=== PATIENT | male | born 1955 | race Caucasian/White ===

== ENCOUNTER → 2024-11-13 | Outpatient (CLI) | payer SELFPAY ==
--- NOTE | 2024-11-13 08:00 | PROSBIL_PTH ---
PATIENT: ARNIE WOOD LOC: [facility] U#:[id number] AGE/SX: 69/M ROOM: RE11/13/[address]: Dr. Ever Beltrán MD : 1955 BED: DIS: 11/13/2024 SPEC #: [id number] RECD: 11/13/24 15:00 STATUS: MYRA REShawna #: [id number] DOROTHY: 11/13/24 08:[address]: Ever Beltrán DEPT: SURGICAL PATHOLOGY RECD BY: Woody Bradley ENTERED: 11/14/24 10:44 SP TYPE: PROST BX QAMAR DR: RICHAR ANDERSON, JENNA Tissues: A - PROSTATE RIGHT B - PROSTATE RIGHT C - PROSTATE RIGHT D - PROSTATE LEFT E - PROSTATE LEFT F - PROSTATE LEFT Procedures: PROSTATE BX HEADER OPERATION: Prostate biopsy PRE-OP DIAGNOSIS: Elevated PSA TISSUE SUBMITTED: A - Right apex, B - Right mid, C - Right base, D - Left apex, E - Left mid, F - Left base MICROSCOPIC DIAGNOSIS A. 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 B. 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 C. 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 D. Left prostate, apex, core biopsy: - Adenocarcinoma Charissa grade 4+5=9, involving one of one core and 70% of the tissue - see note. Note: One core of tissue is recovered after processing. E. Left prostate, mid, core biopsy: - Adenocarcinoma [place] grade 4+5=9, involving one of one core and 75% of the tissue - see note. Note: One core of tissue is recovered after processing. F. Left prostate, base, core biopsy: - Adenocarcinoma [place] grade 4+5=9, involving one of one core and 90% of the tissue - see note. Note: One core of tissue is recovered after processing. MICROSCOPIC DESCRIPTION Slides are reviewed. GROSS DESCRIPTION A - Received is one container designated prostate, right apex. The specimen consists of two elongated fragments of light liu-white soft tissue each measuring 0.9 cm in length and 0.1 cm in diameter. The specimen is totally submitted in one cassette. B - Received is one container designated prostate, right mid. The specimen consists of two elongated fragments of light liu-white soft tissue each measuring 0.6 cm in length and 0.1 cm in diameter. The specimen is totally submitted in one cassette. C - Received is one container designated prostate, right base. The specimen consists of two elongated fragments of light liu-white soft tissue each measuring 1.3 cm in length and 0.1 cm in diameter. The specimen is totally submitted in one cassette. D - Received is one container designated prostate, left apex. The specimen consists of two elongated fragments of light liu-white soft tissue each measuring 1.9 cm in length and 0.1 cm in diameter. The specimen is totally submitted in one cassette. E - Received is one container designated prostate, left mid. The specimen consists of two elongated fragments of light liu-white soft tissue each measuring 1.4 cm in length and 0.1 cm in diameter. The specimen is totally submitted in one cassette. F - Received is one container designated prostate, left base. The specimen consists of two elongated fragments of light liu-white soft tissue each measuring 1.4 cm in length and 0.1 cm in diameter. The specimen is totally submitted in one cassette. [place] 11/14/2024 CPT: 97271 x6
--- NOTE | 2024-11-13 08:00 | PROSBIL_PTH ---
PATIENT: ARNIE WOOD LOC: [facility] U#:[id number] AGE/SX: 69/M ROOM: RE11/13/[address]: Dr. Ever Beltrán MD : 1955 BED: DIS: 11/13/2024 SPEC #: [id number] RECD: 11/13/24 15:00 STATUS: MYRA REShawna #: [id number] DOROTHY: 11/13/24 08:[address]: Ever Beltrán DEPT: SURGICAL PATHOLOGY RECD BY: Woody Bradley ENTERED: 11/14/24 10:44 SP TYPE: PROST BX QAMAR DR: RICHAR ANDERSON, JENNA Tissues: A - PROSTATE RIGHT B - PROSTATE RIGHT C - PROSTATE RIGHT D - PROSTATE LEFT E - PROSTATE LEFT F - PROSTATE LEFT Procedures: PROSTATE BX HEADER OPERATION: Prostate biopsy PRE-OP DIAGNOSIS: Elevated PSA TISSUE SUBMITTED: A - Right apex, B - Right mid, C - Right base, D - Left apex, E - Left mid, F - Left base MICROSCOPIC DIAGNOSIS A. 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 B. 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 C. 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 D. Left prostate, apex, core biopsy: - Adenocarcinoma Char[place] grade 4+5=9, involving one of one core and 70% of the tissue - see note. Note: One core of tissue is recovered after processing. E. Left prostate, mid, core biopsy: - Adenocarcinoma [place] grade 4+5=9, involving one of one core and 75% of the tissue - see note. Note: One core of tissue is recovered after processing. F. Left prostate, base, core biopsy: - Adenocarcinoma [place] grade 4+5=9, involving one of one core and 90% of the tissue - see note. Note: One core of tissue is recovered after processing. MICROSCOPIC DESCRIPTION Slides are reviewed. GROSS DESCRIPTION A - Received is one container designated prostate, right apex. The specimen consists of two elongated fragments of light liu-white soft tissue each measuring 0.9 cm in length and 0.1 cm in diameter. The specimen is totally submitted in one cassette. B - Received is one container designated prostate, right mid. The specimen consists of two elongated fragments of light liu-white soft tissue each measuring 0.6 cm in length and 0.1 cm in diameter. The specimen is totally submitted in one cassette. C - Received is one container designated prostate, right base. The specimen consists of two elongated fragments of light liu-white soft tissue each measuring 1.3 cm in length and 0.1 cm in diameter. The specimen is totally submitted in one cassette. D - Received is one container designated prostate, left apex. The specimen consists of two elongated fragments of light liu-white soft tissue each measuring 1.9 cm in length and 0.1 cm in diameter. The specimen is totally submitted in one cassette. E - Received is one container designated prostate, left mid. The specimen consists of two elongated fragments of light liu-white soft tissue each measuring 1.4 cm in length and 0.1 cm in diameter. The specimen is totally submitted in one cassette. F - Received is one container designated prostate, left base. The specimen consists of two elongated fragments of light liu-white soft tissue each measuring 1.4 cm in length and 0.1 cm in diameter. The specimen is totally submitted in one cassette. [place] 11/14/2024 CPT: 82710 x6
== END | disposition home or self-care (01) ==
LOC: LABSPEC 15:11
PROVIDERS: PCP Nurse Practitioner Family; Referring Provider Urology; Visit Provider Urology
DX: R97.20 Elevated prostate specific antigen [PSA] (principal)
CPT/HCPCS: 88305; G0416

== ENCOUNTER → 2024-11-29 | Outpatient (CLI) | payer OTHER, SELFPAY ==
[2024-11-29 18:07] LABS: Anion Gap 10 (5-15); BUN 23 mg/dL (4-19); BUN/Creat Ratio 27.3 RATIO (10-20); Calcium,Total 8.6 mg/dL (7.6-11.0); Carbon Dioxide 22.5 mmol/L (21.0-32.0); Chloride 109 mmol/L (98-108); Glucose 93 mg/dL (70-99); Potassium 4.5 mmol/L (3.3-5.1)
== END | disposition home or self-care (01) ==
LOC: LAB 16:40
PROVIDERS: PCP Nurse Practitioner Family; Referring Provider Urology; Visit Provider Urology
DX: Z01.812 Encounter for preprocedural laboratory examination (principal)
CPT/HCPCS: 36415; 80048

== ENCOUNTER 2025-01-02 09:24 | Observation (INO) | payer SELFPAY, OTHER ==
[2025-01-02] VITALS (12 sets, daily range): BP systolic 115–130; BP diastolic 55–67; PULSE 47–66; RESP 12–18; TEMP 36–36.5; O2SAT 91–100; BMI 28.8
--- OUTSIDE RECORDS SUMMARY | 2025-01-02 06:39 | XMS RPT_ITS | CCD ---
Author Organization [facility] Care Team Providers Care Disease Intervention Specialist Name Role Phone STANISLAW GROSS DO Attending Unavailable STANISLAW GROSS DO Primary Care Unavailable STANISLAW GROSS DO Primary Care Physician [phone] JUSTIN CRULLER MAKER MACHINE-C, RICHAR Primary Care Provider Lorena FIERRO, Dr. Ever Powell Attending Provider Lorena FIERRO, Dr. Ever Powell Referring Provider 1( [phone] Maria G CARRILLO Attending Unavailable Maria G CARRILLO Primary Care Unavailable Maria G CARRILLO Admitting Unavailable STANISLAW GROSS IV Consulting Unavailable PROVIDER, UNKNOWN Consulting Unavailable ILIANA MUIR Attending STANISLAW Galvan DO Primary Care Unavailable ILIANA MUIR Attending STANISLAW Galvan DO Primary Care Unavailable MUNA ALMAGUER MD Attending Unavailable STANISLAW GROSS DO Primary Care Unavailable Ever Carrillo Referring Unavailable RICHAR ANDERSON Primary Care Unavailable LorenaEver zuniga Attending Unavailable LorenaEver zuniga Referring Unavailable HalStanislaw norwood Primary Care Unavailable LorenaEver zuniga Attending Unavailable LorenaEver Referring Unavailable Lorena, Ever Powell Attending Unavailable JUSTINRICHAR Primary Care Unavailable LorenaEver Referring Unavailable JUSTIN, RICHAR Primary Care Unavailable LorenaEver Attending Unavailable Medications Current Medications Medication Drug Class(es) Dates Sig (Normalized) Sig (Original) esomeprazole 40 mg delayed release oral capsule (3 sources) Proton Pump Inhibitor Start: 09-04-2024 End: 03-03-2025 esomeprazole 40 mg oral delayed release capsule Dose : 40 mg = 1 cap(s), Oral, qDay, # 90 cap(s), 1 Refill(s), Pharmacy: [facility], 173, cm, 09/04/24 10:17:00 EDT, Height, kg, 09/04/24 10:17:00 EDT, Dosing Weight Start Date: 09/04/24 Stop Date: 03/03/25 Status: Ordered Medication Dispense Status: Completed Quantity: 90.0 Unit: cap(s) Total Allowed Fills: 2 Fills Dispensed: 0 Start: 04-26-2023 End: 10-23-2023 esomeprazole 40 mg oral melissa yed release capsule Dose : 40 mg = 1 cap(s), Oral, qDay, # 90 cap(s), 1 Refill(s), [facility]: [id number], 173, cm, 04/26/23 10:06:00 EST, Height, kg, 04/26/23 10:06:00 EST, Dosing Weight Start Date: 04/26/23 Stop Date: 10/23/23 Status: Ordered famotidine 40 mg oral tablet (1 source) Histamine-2 Receptor Antagonist Start: 04-26-2023 famotidine 40 mg ora l tablet Dose : 40 mg = 1 tab(s), Oral, BID, first dose in am with esopmeprazole, second before dinner in evening, # 60 tab(s), 0 Refill(s), [facility]: [facility] #[id number], 173, cm, 04/26/23 10:06:00 EST, Height, kg, 04/26/23 10:06:00 EST, Dosing Weight Start Date: 04/26/23 Status: Ordered LORazepam 1 mg oral tablet (2 sources) Benzodiazepine Start: 09-04-2024 End: 10-04-2024 LORazepam 1 mg oral tablet Dose : 1 mg = 1 tab(s), Oral, BID, X 30 day(s), # 60 tab(s), 0 Refill(s), 10/04/24 10:41:00 AM EDT, Pharmacy: [facility], Anxiety, 173, cm, 09/04/24 10:17:00 EDT, Height, 88.9, kg, 09/04/24 10:17:00 EDT, Dosing Weight Start Date: 09/04/24 Stop Date: 10/04/24 Status: Ordered Quantity: 60.0 Unit: tab(s) Repeat number: 1 Indications: Anxiety disorder, unspecified; Start: 04-26-2023 End: 05-26-2023 LORazepam 1 mg oral tablet D ose : 1 mg = 1 tab(s), Oral, q12h, take 1 tablet by mouth twice a day if needed for anxiety, X 30 day(s), # 60 tab(s), 0 Refill(s), 05/26/23 10:40:00 AM EST, [facility]: [facility] #[id number], Panic attack, 173, cm, 04/26/23 10:06:00 EST, Height, 88.5, kg, 04/26/23 10:06:00 EST, Dosing Weight Start Date: 04/26/23 Stop Date: 05/26/23 Status: Ordered sulfamethoxazole 800 mg / trimethoprim 160 mg oral tablet (1 source) Dihydrofolate Reductase Inhibitor Antibacterial, Sulfonamide Antimicrobial Start: 09-14-2024 End: 09-28-2024 take 1 tablet by mouth twice daily Bactrim DS 800 mg-160 mg oral tablet Dose = 1 tab(s), Oral, BID, X 14 day(s), # 28 tab(s), 0 Refill(s), Pharmacy: [facility], 173, cm, 09/04/24 10:17:00 EDT, Height, 88.9, kg, 09/04/24 10:17:00 EDT, Dosing Weight Start Date: 09/14/24 Stop Date: 09/28/24 Status: Ordered Quantity: 28.0 Unit: tab(s) Repeat number: 1 Indications: Acute prostatitis; tamsulosin hydrochloride 0.4 mg oral capsule (2 sources) alpha-Adrenergic Yue Start: 09-14-2024 End: 03-13-2025 Flomax 0.4 mg oral capsule Dose : 0.4 mg = 1 cap(s), Oral, qDay, # 90 cap(s), 1 Refill(s), Pharmacy: [facility], Acute prostatitis Incomplete emptying of bladder, 173, cm, 09/04/24 10:17:00 EDT, Height, kg, 09/04/24 10:17:00 EDT, Dosing Weight Start Date: 09/14/24 Stop Date: 03/13/25 Status: Ordered Medication Dispense Status: Completed Quantity: 90.0 Unit: cap(s) Total Allowed Fills: 2 Fills Dispensed: 0 Indications: Retention of urine, unspecified; Acute prostatitis; 24 hr venlafaxine 75 mg extended release oral capsule (2 sources) Serotonin and Norepinephrine Reuptake Inhibitor Start: 09-04-2024 venlafaxine 75 mg oral capsule, extended release Dose : 75 mg = 1 cap(s), Oral, qDay, # 30 cap(s), 0 Refill(s), Pharmacy: [facility], 173, cm, 09/04/24 10:17:00 EDT, Height, kg, 09/04/24 10:17:00 EDT, Dosing Weight Start Date: 09/04/24 Status: Ordered Medication Dispense Status: Completed Quantity: 30.0 Unit: cap(s) Total Allowed Fills: 1 Fills Dispensed: 0 warfarin sodium 5 mg oral tablet (3 sources) Vitamin K Antagonist Start: 09-04-2024 warfarin 5 mg oral tablet Dose : 5 mg = 1 tab(s), Oral, qDay, # 90 tab(s), 1 Refill(s), Pharmacy: [facility], 173, cm, 09/04/24 10:17:00 EDT, Height, kg, 09/04/24 10:17:00 EDT, Dosing Weight Start Date: 09/04/24 Status: Ordered Medication Dispense Status: Completed Quantity: 90.0 Unit: tab(s) Total Allowed Fills: 2 Fills Dispensed: 0 Start: 04-26-2023 warfarin 5 mg oral tablet Dose : 5 mg = 1 tab(s), Oral, qDay, # 90 tab(s), 1 Refill(s), Pharmacy: [facility] #[id number], 173, cm, 04/26/23 10:06:00 EST, Height, kg, 04/26/23 10:06:00 EST, Dosing Weight Start Date: 04/26/23 Status: Ordered Problems Problem Classification Problem Date Documented Da te Episodic/Chronic Abdominal hernia (3 sources) Hiatal hernia 08-25-2021 Episodic Anxiety disorders (6 sources) Anxiety; Translations: [Panic attack] 11-21-2018 Chronic Cancer of prostate (1 source) Malignant tumor of prostate 12-17-2024 Chronic Coagulation and hemorrhagic disorders (6 sources) Factor V Leiden mutation; Translations: [Hypercoagulability state] 04-09-2020 Chronic Deficiency and other anemia (3 sources) Normocytic anemia 04-07-2020 Episodic Deficiency and other anemia (1 source) Anemia; Translations: [Anemia, unspecified] Onset: 12-19-2024 Episodic Deficiency and other anemia (1 source) Anemia, unspecified; Translations: [Anemia, unspecified] Onset: 12-19-2024 Episodic Diverticulosis and diverticulitis (3 sources) Diverticulosis of colon 10-26-2021 Chronic Gastroduodenal ulcer (except hemorrhage) (3 sources) Peptic ulcer 10-26-2021 Chronic Gastroduodenal ulcer (except hemorrhage) (5 sources) Personal history of peptic ulcer disease; Translations: [H/O: peptic ulcer] Onset: 05-17-2023 Episodic Genitourinary symptoms and ill-defined conditions (14 sources) Blood in urine; Translations: [Hematuria, unspecified] Onset: 09-14-2024 Episodic Hepatitis (3 sources) Hepatitis 11-09-2022 Malaise and fatigue (3 sources) Fatigue 06-01-2019 Episodic Mood disorders (3 sources) Major depression in remission 11-09-2022 Chronic Osteoarthritis (3 sources) Osteoarthritis 08-01-2020 Chronic Other gastrointestinal disorders (3 sources) Irritable bowel syndrome 08-25-2021 Chronic Other gastrointestinal disorders (2 sources) Constipation 08-30-2023 Episodic Other hereditary and degenerative nervous system conditions (3 sources) Restless legs 06-01-2019 Chronic Other lower respiratory disease (3 sources) Snoring 06-01-2019 Episodic Other nutritional; endocrine; and metabolic disorders (1 source) Overweight 11-09-2022 Episodic Other screening for suspected conditions (not mental disorders or infectious disease) (1 source) Elevated prostate specific antigen [PSA]; Translations: [Elevated prostate specific antigen [PSA]] Onset: 12-11-2024 Episodic Residual codes; unclassified (3 sources) Insomnia 08-10-2019 Episodic Residual codes; unclassified (3 sources) Screening due 04-27-2022 Episodic Screening and history of mental health and substance abuse codes (2 sources) Ex-tobacco user 08-30-2023 Episodic Unclassified (3 sources) Anticoagulant effect 04-26-2023 Unclassified (3 sources) Medication refused 11-09-2022 Unclassified (6 sources) Patient encounter status 11-09-2022 Unclassified (2 sources) Drug therapy finding 08-30-2023 Results Test Name Value Interpretation Reference Range Facility .Auto Diffon 12-19-2024 Basophil, Absolute 0.0 10 3/mcL Normal 0.0-0.3 [facility] Comment on above: Performed By: #### A PTT, CBC, MDW, GFR, PRO, ANEU, CMP, ABSGEL, ABOGEL, ADIFF, MG #### [address] [address] Basophils/100 WBC (Bld) 0.5 % Normal 0.0-2.5 [facility] Comment on above: Performed By: #### A PTT, CBC, MDW, GFR, PRO, ANEU, CMP, ABSGEL, ABOGEL, ADIFF, MG #### [address] [address] Eosinophil, Absolute 0.0 10 3/mcL Normal 0.0-0.7 [facility] Comment on above: Performed By: #### A PTT, CBC, MDW, GFR, PRO, ANEU, CMP, ABSGEL, ABOGEL, ADIFF, MG #### [address] [address] Eosinophils/100 WBC (Bld) 0.7 % Normal 0.0-6.0 [facility] Comment on above: Performed By: #### A PTT, CBC, MDW, GFR, PRO, ANEU, CMP, ABSGEL, ABOGEL, ADIFF, MG #### [address] [address] Lymphocyte, Absolute 0.7 10 3/mcL Low 0.9-4.3 [facility] Comment on above: Performed By: #### A PTT, CBC, MDW, GFR, PRO, ANEU, CMP, ABSGEL, ABOGEL, ADIFF, MG #### [address] [address] Lymphocytes/100 WBC (Bld) 14.8 % Low 20.0-40.0 [facility] Comment on above: Performed By: #### A PTT, CBC, MDW, GFR, PRO, ANEU, CMP, ABSGEL, ABOGEL, ADIFF, MG #### [address] [address] Monocyte, Absolute 0.5 10 3/mcL Normal 0.1-1.4 [facility] Comment on above: Performed By: #### A PTT, CBC, MDW, GFR, PRO, ANEU, CMP, ABSGEL, ABOGEL, ADIFF, MG #### [address] [address] Monocytes/100 WBC (Bld) 10.4 % Normal 2.0-13.0 [facility] Comment on above: Performed By: #### A PTT, CBC, MDW, GFR, PRO, ANEU, CMP, ABSGEL, ABOGEL, ADIFF, MG #### [address] [address] Neutrophils/100 WBC (Bld) 73.6 % Normal 50.0-75.0 [facility] Comment on above: Performed By: #### A PTT, CBC, MDW, GFR, PRO, ANEU, CMP, ABSGEL, ABOGEL, ADIFF, MG #### [address] [address] .GFRon 12-19-2024 Estimated Glomerular Filtration Rate 93 ml/min/1.73sqm Normal [facility] Comment on above: Result Comment: Stages of Chronic Kidney Disease (CKD) Stage Description eGFR(ml/min/1.73 sq.m.) CKD 1 Normal kidney function or >=90 normal kindney function with possible kidney damage (ex. Proteinuria) CKD 2 Kidney damage with mild loss 60-89 of kidney function CKD 3a Mild to moderate loss of kidney 45-59 function CKD 3b Moderate to severe loss of 30-44 of kindey function CKD 4 Severe loss of kidney function 15-29 CKD 5 Kidney failure <15 Note: (go live 2024) the eGFR calculation was updated to the 2020 CKD-EPI creatinine equation without a race factor to calculate the eGFR results. Performed By: #### A PTT, CBC, MDW, GFR, PRO, ANEU, CMP, ABSGEL, ABOGEL, ADIFF, MG ####[facility] [place], [place] [address] .MDWon 12-19-2024 Monocyte Distribution Width 15.87 Normal 0.00-20.00 [facility] Comment on above: Result Comment: For ED adult patients suspected of sepsis, MDW<=20.0 does not rule out sepsis or risk of sepsis Performed By: #### A PTT, CBC, MDW, GFR, PRO, ANEU, CMP, ABSGEL, ABOGEL, ADIFF, MG #### [address] [address] .NEUABSon 12-19-2024 Neutrophil, Absolute 3.6 10 3/mcL Normal 2.3-8.1 [facility] Comment on above: Performed By: #### A PTT, CBC, MDW, GFR, PRO, ANEU, CMP, ABSGEL, ABOGEL, ADIFF, MG #### [address] [address] ABO/Rh (Gel)on 12-19-2024 ABO/Rh Interp Positive Invalid Interpretation Code [facility] Comment on above: Performed By: #### A PTT, CBC, MDW, GFR, PRO, ANEU, CMP, ABSGEL, ABOGEL, ADIFF, MG ####[place] [id number] [place], [place] [address] ABS (Gel)on 12-19-2024 ABSC Interp (Gel) Negative Normal [facility] Comment on above: Performed By: #### A PTT, CBC, MDW, GFR, PRO, ANEU, CMP, ABSGEL, ABOGEL, ADIFF, MG ####[id number] [place], [place] [address] APTTon 12-19-2024 aPTT Coag (Bld) [Time] 38.8 s High 25.0-35.0 [facility] Comment on above: Result Comment: For Heparin anticoagulation therapy, the recommended therapeutic range is: 45.4-75.9 seconds. Patients on heparin therapy may have an extreme result. Performed By: #### A PTT, CBC, MDW, GFR, PRO, ANEU, CMP, ABSGEL, ABOGEL, ADIFF, MG ####[address] [address] CBCon 12-19-2024 Erythrocyte distribution width (RBC) [Ratio] 14.7 % Normal 11.5-15.5 [facility] Comment on above: Performed By: #### A PTT, CBC, MDW, GFR, PRO, ANEU, CMP, ABSGEL, ABOGEL, ADIFF, MG #### [place] [address] Hematocrit (Bld) [Volume fraction] 35.2 % Low 40.0-52.0 [facility] Comment on above: Performed By: #### A PTT, CBC, MDW, GFR, PRO, ANEU, CMP, ABSGEL, ABOGEL, ADIFF, MG #### [place] [address] Hgb 11.8 G/dL Low 13.0-17.5 [facility] Comment on above: Performed By: #### A PTT, CBC, MDW, GFR, PRO, ANEU, CMP, ABSGEL, ABOGEL, ADIFF, MG #### [place] [address] MCH (RBC) [Entitic mass] 29.3 pg Normal 27.0-33.0 [facility] Comment on above: Performed By: #### A PTT, CBC, MDW, GFR, PRO, ANEU, CMP, ABSGEL, ABOGEL, ADIFF, MG #### [place] [address] MCHC 33.6 G/dL Normal 32.0-36.0 [facility] Comment on above: Performed By: #### A PTT, CBC, MDW, GFR, PRO, ANEU, CMP, ABSGEL, ABOGEL, ADIFF, MG #### [place] [id number] MCV (RBC) [Entitic vol] 87.2 fL Normal 81.0-100.0 [facility] Comment on above: Performed By: #### A PTT, CBC, MDW, GFR, PRO, ANEU, CMP, ABSGEL, ABOGEL, ADIFF, MG #### [address] [address] Platelet 254 10 3/mcL Normal 150-450 [facility] Comment on above: Performed By: #### A PTT, CBC, MDW, GFR, PRO, ANEU, CMP, ABSGEL, ABOGEL, ADIFF, MG #### [address] [address] Platelet mean volume (Bld) [Entitic vol] 6.4 fL Normal 6.4-10.5 [facility] Comment on above: Performed By: #### A PTT, CBC, MDW, GFR, PRO, ANEU, CMP, ABSGEL, ABOGEL, ADIFF, MG #### [address] [address] RBC 4.03 10 6/mcL Low 4.50-6.00 [facility] Comment on above: Performed By: #### A PTT, CBC, MDW, GFR, PRO, ANEU, CMP, ABSGEL, ABOGEL, ADIFF, MG #### [address] [address] WBC 4.8 10 3/mcL Normal 4.5-10.8 [facility] Comment on above: Performed By: #### A PTT, CBC, MDW, GFR, PRO, ANEU, CMP, ABSGEL, ABOGEL, ADIFF, MG #### [address] [address] CMPon 12-19-2024 Albumin Level 2.9 G/dL Low 3.4-4.8 [facility] Comment on above: Performed By: #### A PTT, CBC, MDW, GFR, PRO, ANEU, CMP, ABSGEL, ABOGEL, ADIFF, MG ####[address] [address] Albumin/Globulin [Mass ratio] 0.9 {ratio} Low 1.1-2.5 [facility] Comment on above: Performed By: #### A PTT, CBC, MDW, GFR, PRO, ANEU, CMP, ABSGEL, ABOGEL, ADIFF, MG ####[address] [address] ALP [Catalytic activity/Vol] 105 U/L Normal 40-135 [facility] Comment on above: Performed By: #### A PTT, CBC, MDW, GFR, PRO, ANEU, CMP, ABSGEL, ABOGEL, ADIFF, MG ####[place] [id number] ALT [Catalytic activity/Vol] 17 U/L Normal 16-63 [facility] Comment on above: Performed By: #### A PTT, CBC, MDW, GFR, PRO, ANEU, CMP, ABSGEL, ABOGEL, ADIFF, MG ####[place] [address] AST [Catalytic activity/Vol] 19 U/L Normal 10-40 [facility] Comment on above: Performed By: #### A PTT, CBC, MDW, GFR, PRO, ANEU, CMP, ABSGEL, ABOGEL, ADIFF, MG ####[address] [address] Bili Total 0.7 mg/dL Normal 0.2-1.0 [facility] Comment on above: Result Comment: Use of this assay is not recommended for patients undergoing treatment with eltrombopag due to the potential for falsely elevated results. Performed By: #### A PTT, CBC, MDW, GFR, PRO, ANEU, CMP, ABSGEL, ABOGEL, ADIFF, MG ####[id number] [place], [place] [address] BUN/Creatinine Ratio 19 ratio Normal 7-27 [facility] Comment on above: Performed By: #### A PTT, CBC, MDW, GFR, PRO, ANEU, CMP, ABSGEL, ABOGEL, ADIFF, MG ####[address] [address] Calcium [Mass/Vol] 8.5 mg/dL Normal 8.4-10.2 [facility] Comment on above: Performed By: #### A PTT, CBC, MDW, GFR, PRO, ANEU, CMP, ABSGEL, ABOGEL, ADIFF, MG ####[address] [address] Chloride [Moles/Vol] 105 mmol/L Normal 98-107 [facility] Comment on above: Performed By: #### A PTT, CBC, MDW, GFR, PRO, ANEU, CMP, ABSGEL, ABOGEL, ADIFF, MG ####[place] [address] CO2 [Moles/Vol] 26 mmol/L Normal 23-31 [facility] Comment on above: Performed By: #### A PTT, CBC, MDW, GFR, PRO, ANEU, CMP, ABSGEL, ABOGEL, ADIFF, MG ####[place] [address] Creatinine [Mass/Vol] 0.85 mg/dL Normal 0.67-1.17 [facility] Comment on above: Performed By: #### A PTT, CBC, MDW, GFR, PRO, ANEU, CMP, ABSGEL, ABOGEL, ADIFF, MG ####[place] [address] Electrolyte Balance 8.0 mEq/L Normal 4.0-15.0 [facility] Comment on above: Performed By: #### A PTT, CBC, MDW, GFR, PRO, ANEU, CMP, ABSGEL, ABOGEL, ADIFF, MG ####[place] [address] Globulin 3.3 G/dL Normal 2.7-4.4 [facility] Comment on above: Performed By: #### A PTT, CBC, MDW, GFR, PRO, ANEU, CMP, ABSGEL, ABOGEL, ADIFF, MG ####[place] [address] Glucose [Mass/Vol] 108 mg/dL Normal 83-110 [facility] Comment on above: Performed By: #### A PTT, CBC, MDW, GFR, PRO, ANEU, CMP, ABSGEL, ABOGEL, ADIFF, MG ####[address] [place], [place] [address] Potassium [Moles/Vol] 4.2 mmol/L Normal 3.5-5.1 [facility] Comment on above: Performed By: #### A PTT, CBC, MDW, GFR, PRO, ANEU, CMP, ABSGEL, ABOGEL, ADIFF, MG ####[facility] [place], [place] [address] Sodium [Moles/Vol] 139 mmol/L Normal 136-145 [facility] Comment on above: Performed By: #### A PTT, CBC, MDW, GFR, PRO, ANEU, CMP, ABSGEL, ABOGEL, ADIFF, MG ####[facility] [place], [place] [address] Total Protein 6.2 G/dL Low 6.4-8.2 [facility] Comment on above: Performed By: #### A PTT, CBC, MDW, GFR, PRO, ANEU, CMP, ABSGEL, ABOGEL, ADIFF, MG ####[facility] [place], [place] [address] Urea nitrogen [Mass/Vol] 16 mg/dL Normal 7-18 [facility] Comment on above: Performed By: #### A PTT, CBC, MDW, GFR, PRO, ANEU, CMP, ABSGEL, ABOGEL, ADIFF, MG ####[facility] [place], [place] [address] LABORATORYOrdered By: Castillo Day on 12-19-2024 ABO and Rh group Nom (Bld) Blood group A Rh(D) positive Invalid Interpretation Code AO BB Auto SS Blood group antibody screen Ql Negative ABSC (12/19/24 3:06 PM) Normal AO BB Auto SS LABORATORYOrdered By: Topple Track SYSTEM on 12-19-2024 Albumin BCP dye [Mass/Vol] 2.9 G/dL Low 3.4 - 4.8 G/dL AO ADM SS Albumin/Globulin [Mass ratio] 0.9 {ratio} Low 1.1 - 2.5 ratio AO ADM SS ALP [Catalytic activity/Vol] 105 U/L Normal 40 - 135 U/L AO ADM SS ALT With P-5'-P [Catalytic activity/Vol] 17 U/L Normal 16 - 63 U/L AO ADM SS aPTT Coag (PPP) [Time] 38.8 s High 25.0 - 35.0 seconds AO [facility] SS Comment on above: Interpretive Data: F or Heparin anticoagulation therapy, the recommended therapeutic range is: 45.4-75.9 seconds. Patients on heparin therapy may have an extreme result. AST With P-5'-P [Catalytic activity/Vol] 19 U/L Normal 10 - 40 U/L AO ADM SS Basophils (Bld) [#/Vol] 0.0 103/mcL Normal 0.0 - 0.3 10^3/mcL AO Workflow SS Basophils/100 WBC (Bld) 0.5 % Normal 0.0 - 2.5 % AO Workflow SS Bilirubin [Mass/Vol] 0.7 mg/dL Normal 0.2 - 1 .0 mg/dL AO ADM SS Comment on above: Interpretive Data: U se of this assay is not recommended for patients undergoing treatment with eltrombopag due to the potential for falsely elevated results. Calcium [Mass/Vol] 8.5 mg/dL Normal 8.4 - 10. 2 mg/dL AO ADM SS Chloride [Moles/Vol] 105 mmol/L Normal 98 - 10 7 mmol/L AO ADM SS CO2 [Moles/Vol] 26 mmol/L Normal 23 - 31 mmol/L AO ADM SS Creatinine [Mass/Vol] 0.85 mg/dL Normal 0.67 - 1.17 mg/dL AO ADM SS Electrolyte Balance 8.0 mEq/L Normal 4.0 - 15 .0 mEq/L AO ADM SS Eosinophil, Absolute 0.0 103/mcL Normal 0.0 - 0 .7 10^3/mcL AO Workflow SS Eosinophils/100 WBC (Bld) 0.7 % Normal 0.0 - 6.0 % AO Workflow SS Erythrocyte distribution width (RBC) [Ratio] 14.7 % Normal 11.5 - 15.5 % AO Workflow SS Estimated Glomerular Filtration Rate 93 ml/min/1.73sqm Invalid Interpretation Code AO Chemistry S Comment on above: Interpretive Data: Stages of Chronic Kidney Disease (CKD) Stage Description eGFR(ml/min/1.73 sq.m.) CKD 1 Normal kidney function or >=90 normal kindney function with possible kidney damage (ex. Proteinuria) CKD 2 Kidney damage with mild loss 60-89 of kidney function CKD 3a Mild to moderate loss of kidney 45-59 function CKD 3b Moderate to severe loss of 30-44 of kindey function CKD 4 Severe loss of kidney function 15-29 CKD 5 Kidney failure <15 Note: (go live 2024) the eGFR calculation was updated to the 2020 CKD-EPI creatinine equation without a race factor to calculate the eGFR results. Globulin 3.3 G/dL Normal 2.7 - 4.4 G/dL AO ADM SS Glucose [Mass/Vol] 108 mg/dL Normal 83 - 110 mg/dL AO ADM SS Hematocrit (Bld) [Volume fraction] 35.2 % Low 40.0 - 52.0 % AO Workflow SS Hemoglobin (Bld) [Mass/Vol] 11.8 G/dL Low 13.0 - 17.5 G/dL AO Workflow SS INR Coag (PPP) [Relative time] 2.3 {INR} Invalid Interpretation Code AO [facility] SS Comment on above: Interpretive Data: Maria C jalloh [employer] (CHEST, 1992, [id number]) recommended therapeutic range for oral anticoagulant therapy is: LOW RISK: Prophylaxis of venous thrombosis INR: 2.0-3.0 Treatment of pulmonary embolism 2.0-3.0 Prevention of systemic embolism 2.0-3.0 HIGH RISK: Mechanical prosthetic valves 2.5-3.5 Lymphocytes (Bld) [#/Vol] 0.7 103/mcL Low 0.9 - 4.3 10^3/mcL AO Workflow SS Lymphocytes/100 WBC (Bld) 14.8 % Low 20.0 - 40.0 % AO Workflow SS Magnesium [Mass/Vol] 2.1 mg/dL Normal 1.8 - 2 .4 mg/dL AO ADM SS MCH (RBC) [Entitic mass] 29.3 pg Normal 27.0 - 33.0 pg AO Workflow SS MCHC 33.6 G/dL Normal 32.0 - 36.0 G/dL AO Workflow SS MCV (RBC) [Entitic vol] 87.2 fL Normal 81.0 - 100.0 fL AO Workflow SS Monocyte distribution width Auto (Bld) [Entitic vol] 15.87 1 Normal 0.00 - 20.00 AO Workflow SS Comment on above: Result Comment: For ED adult patients suspected of sepsis, MDW<=20.0 does not rule out sepsis or risk of sepsis Monocytes (Bld) [#/Vol] 0.5 103/mcL Normal 0.1 - 1.4 10^3/mcL AO Workflow SS Monocytes/100 WBC (Bld) 10.4 % Normal 2.0 - 13.0 % AO Workflow SS Neutrophils (Bld) [#/Vol] 3.6 103/mcL Normal 2.3 - 8.1 10^3/mcL AO Workflow SS Neutrophils/100 WBC (Bld) 73.6 % Normal 50.0 - 75.0 % AO Workflow SS Platelet mean volume (Bld) [Entitic vol] 6.4 fL Normal 6.4 - 10.5 fL AO Workflow SS Platelets (Bld) [#/Vol] 254 103/mcL Normal 150 - 450 10^3/mcL AO Workflow SS Potassium [Moles/Vol] 4.2 mmol/L Normal 3.5 - 5.1 mmol/L AO ADM SS Protein [Mass/Vol] 6.2 G/dL Low 6.4 - 8.2 G/dL AO ADM SS PT Coag (PPP) [Time] 26.8 s High 9.0 - 1 4.4 seconds AO [facility] SS RBC (Bld) [#/Vol] 4.03 106/mcL Low 4.50 - 6.0 0 10^6/mcL AO Workflow SS Sodium [Moles/Vol] 139 mmol/L Normal 136 - 145 mmol/L AO ADM SS Urea nitrogen [Mass/Vol] 16 mg/dL Normal 7 - 18 mg/dL AO ADM SS Urea nitrogen/Creatinine [Mass ratio] 19 ratio Normal 7 - 27 ratio AO ADM SS WBC (Bld) [#/Vol] 4.8 103/mcL Normal 4.5 - 10.8 10^3/mcL AO Workflow SS LABORATORYOrdered By: Ventura russell on 12-19-2024 Appearance (U) Cloudy *ABN* (12/19/24 3:06 PM) Invalid Interpretation Code Clear AO Auto Urine SS Bacteria LM.HPF (Urine sed) [#/Area] Trace /HPF Invalid Interpretation Code Negative AO Auto Urine SS Bilirubin Ql (U) Negative (12/19/24 3:06 PM) Normal Negative AO Auto Urine SS Color (U) Red *ABN* (12/19/24 3:06 PM) Invalid Interpretation Code AO Auto Urine SS Glucose Test strip (U) [Mass/Vol] 250 mg/dL Invalid Interpretation Code Negative AO Auto Urine SS Hemoglobin Auto test strip (U) [Mass/Vol] Large *ABN* (12/19/24 3:06 PM) Invalid Interpretation Code Negative AO Auto Urine SS Ketones Ql (U) 15 mg/dL Invalid Interpretation Code Negative AO Auto Urine SS UA Leuk Est Moderate *ABN* (12/19/24 3:06 PM) Invalid Interpretation Code Negative AO Auto Urine SS UA Nitrite Positive *ABN* (12/19/24 3:06 PM) Invalid Interpretation Code Negative AO Auto Urine SS UA pH 5.0 (12/19/24 3:06 PM) Normal 5.0 - 8.0 AO Auto Urine SS UA Protein >=300 mg/dL Invalid Interpretation Code Negative AO Auto Urine SS UA RBC LOADED /HPF Invalid Interpretation Code 0-2 AO Auto Urine SS Comment on above: Result Comment: Due to abnormal color, chemical analysis may demonstrate false positives. Microscopic analysis was performed on unspun urine given volume approximately equal to 1 mL. UA Spec Grav 1.015 (12/19/24 3:06 PM) Normal 1.015-1.025 AO Auto Urine SS UA Specimen Type Camp Catheter (12/19/24 3:06 PM) Normal AO Auto Urine SS UA Squam Epithelial 0-2 /HPF Normal 0-20 AO Au to Urine SS UA Urobilinogen 2.0 E.U./dL Invalid Interpretation Code 0.2-1.0 AO Auto Urine SS WBC LM.HPF (Urine sed) [#/Area] 0-2 /HPF Normal 0-5 AO Auto Urine SS MGon 12-19-2024 Magnesium [Mass/Vol] 2.1 mg/dL Normal 1.8-2.4 [facility] Comment on above: Performed By: #### A PTT, CBC, MDW, GFR, PRO, ANEU, CMP, ABSGEL, ABOGEL, ADIFF, MG ####[facility] [place], [place] [address] No Panel Informationon 12-19 Culture Urine Specimen received in lab. [facility] PROon 12-19-2024 PT Coag (PPP) [Time] 26.8 s High 9.0-14.4 [facility] Comment on above: Performed By: #### A PTT, CBC, MDW, GFR, PRO, ANEU, CMP, ABSGEL, ABOGEL, ADIFF, MG ####[facility] [place] [place], [place] [address] PT International Ratio 2.3 Normal [facility] Comment on above: Result Comment: The [employer] (CHEST, 1991, 102:312S-25S) recommended therapeutic range for oral anticoagulant therapy is: LOW RISK: Prophylaxis of venous thrombosis INR: 2.0-3.0 Treatment of pulmonary embolism 2.0-3.0 Prevention of systemic embolism 2.0-3.0 HIGH RISK: Mechanical prosthetic valves 2.5-3.5 Performed By: #### A PTT, CBC, MDW, GFR, PRO, ANEU, CMP, ABSGEL, ABOGEL, ADIFF, MG ####[facility] [address] [place], [place] [address] UAon 12-19-2024 Color (U) Red Abnormal [facility] Comment on above: Performed By: #### U A, UAMIC ####[facility] [address] [place], [place] [address] Glucose (U) [Mass/Vol] 250 mg/dL Abnormal Negative [facility] Comment on above: Performed By: #### U A, UAMIC ####[facility] [address] [place], [place] [address] Ketones Ql (U) 15 mg/dL Abnormal Negative [facility] Comment on above: Performed By: #### U A, UAMIC ####[facility] [place], [place] [address] UA Appear Cloudy Abnormal Clear [facility] Comment on above: Performed By: #### U A, UAMIC ####[facility] [address] [place], [place] [address] UA Blood Large Abnormal Negative [facility] Comment on above: Performed By: #### U A, UAMIC ####[facility] [address] [place], [place] [address] UA Leuk Est Moderate Abnormal Negative [facility] Comment on above: Performed By: #### U A, UAMIC ####[facility] [address], [place] [address] UA Nitrite Positive Abnormal Negative [facility] Comment on above: Performed By: #### U A, UAMIC ####[facility] [address], [place] [address] UA pH 5.0 Normal 5.0 - 8.0 [facility] Comment on above: Performed By: #### U A, UAMIC ####[facility] [address] [place], [place] [address] UA Protein >=300 Abnormal Negative [facility] Comment on above: Performed By: #### U A, UAMIC ####[facility] [address] [place] [address] UA Spec Grav 1.015 Normal 1.015-1.025 [facility] Comment on above: Performed By: #### U A, UAMIC ####[facility] [address] [place] [address] UA Specimen Type Camp Catheter Normal [facility] Comment on above: Performed By: #### U A, UAMIC ####[facility] [address] [place] [address] UA Urobilinogen 2.0 E.U./dL Abnormal 0.2-1.0 [facility] Comment on above: Performed By: #### U A, UAMIC ####[facility] [address] [place] [address] Urobilinogen (U) [Mass/Vol] Negative Normal Negative [facility] Comment on above: Performed By: #### U A, UAMIC ####[facility] [address] [place] [address] UAMICon 12-19-2024 UA Bacteria Trace Abnormal Negative [facility] Comment on above: Performed By: #### U A, UAMIC ####[facility] [place] [place] [address] UA RBC LOADED Abnormal 0-2 [facility] Comment on above: Result Comment: Due to abnormal color, chemical analysis may demonstrate false positives. Microscopic analysis was performed on unspun urine given volume approximately equal to 1 mL. Performed By: #### U A, UAMIC ####[address] [address] [place], [place] [address] UA Squam Epithelial 0-2 Normal 0-20 [facility] Comment on above: Performed By: #### U A, UAMIC ####[facility] [place], [place] [address] UA WBC 0-2 Normal 0-5 [facility] Comment on above: Performed By: #### U A, UAMIC ####[facility] [place], [place] [address] CT ABDOMEN/PELVIS [facility] 2024 CT ABDOMEN/PELVIS [place] [address] Patient: ARNIE WOOD Phone#: : 1955 Age: 69 Gender: M Pt. Type: Account: [id number] Location: Ordering: Maria G CARRILLO Exam Date: 11/30/2024/13:36 Family Phys: STANISLAW GROSS Charge Code: 470841 Physician: Davie Order #: [id number] Dose#: 28.00 PROCEDURE: CT ABDOMEN/PELVIS WITH CONTRAST COMPARISON: None. INDICATIONS: Prostate cancer. TECHNIQUE: After obtaining the patient's consent, CT images were created with non-ionic intravenous contrast material. All CT scans at this facility use dose modulation, iterative reconstruction, and/or weight based dosing when appropriate to reduce radiation dose to as low as reasonably achievable. IV CONTRAST: Omnipaque 350,80ml TOTAL DOSE: 28.00 CTDIvol(mGy) FINDINGS: LIVER: No arterially enhancing lesions. The left lobe is atrophic. At the margin of the left lobe there are cluster of hypointense lesions the largest measures 1.9 x 1.4 cm, series 4, image 18. The majority measure fluid attenuation. In the right lobe there are several small lesions demonstrating fluid attenuation. These are most consistent with cysts. Several hypointense lesions are too small to characterize. Right and left hepatic veins opacify with contrast. Left hepatic vein appears to be absent, given the atrophic appearance of the left lobe. BILIARY: Gallbladder is present. Small calcification in the gallbladder measuring 0.3 cm PANCREAS: Mild pancreatic atrophy SPLEEN: Calcified granulomas in the spleen KIDNEYS: Kidneys enhance and excrete contrast symmetrically. No hydronephrosis. There is a cyst in the left kidney measuring 1.3. Low-attenuation lesion in the left upper pole is too small to characterize. ADRENALS: Hypertrophy of the left adrenal gland. AORTA/VASCULAR: No abdominal aortic aneurysm. Scattered atherosclerotic calcifications of the aorta RETROPERITONEUM: Mildly enlarged pericaval lymph node, shipping services sales representative node measures 1.0 x 1.6 cm, series 4, image 45. BOWEL/MESENTERY: Evidence of prior surgery at the gastroesophageal junction. No bowel obstruction or dilatation. No significant stool burden. Diverticulosis of the descending and sigmoid colon. Continued Report - Page 2 of 2 Patient: ARNIE WOOD Phone#: : 1955 Age: 69 Gender: M Pt. Type: Account: [id number] Location: Ordering: Maria G CARRILLO Exam Date: 11/30/2024/13:36 Family Phys: STANISLAW GROSS Charge Code: 379644 Physician: Davie Order #: [id number] Dose#: 28.00 ABDOMINAL WALL: Fat containing umbilical hernia. Supraumbilical defect in the anterior abdominal wall defect measures approximately 0.5 cm, series 10, image 37. Bilateral fat containing inguinal hernias. URINARY BLADDER: Prostate protrudes into the bladder. Bladder is partially filled. PELVIC NODES: There is left pelvic sidewall adenopathy. A large lymph node measures 4.5 x 2.4 x 3.1 cm, for example series 4, image 61 and image 66. PELVIC ORGANS: Prostate protrudes into the urinary bladder. The superior margin of the prostate is lobulated. The prostate measures 6.3 x 3.8 x 3.6 cm. BONES: Disc height loss and vacuum disc phenomena L5-S1. Facet arthropathy the lower lumbar spine. LUNG BASES: Calcified left hilar lymph nodes. Small density at the pleura along the right hemidiaphragm, it measures 0.8 cm. OTHER: Negative. CONCLUSION: 1. Left pelvic sidewall adenopathy, presumably secondary to malignancy given history of prostate cancer. 2. Prostate is lobulated and protrudes into the urinary bladder 3. Cholelithiasis 4. Atrophy of the left lobe of the liver. Multiple cysts throughout the liver, with a cluster at the left margin. Additional lesions too small to characterize. Dictated by: Cortney Gomes MD on 11/30/2024 at 14:24 Approved by: Cortney Gomes MD on 11/30/2024 at 15:04 Normal [facility] Anion gap in Serum or Plasma Ordered By: Ever Carrillo on 11-29-2024 Anion gap [Moles/Vol] 10 mmol/L 5-15 [facility] BUN/creatinine ratioOrdered By: Ever Carrillo on 11-29-2024 Urea nitrogen/Creatinine [Mass ratio] 27.3 mg/mg High 10-20 [facility] Basic Metabolic Profile (BMP )on 11-29-2024 BUN/CRE 27.3 RATIO High - [facility] Comment on above: Performed By: #### L 500.2500 #### [facility] [address] [place], [address] Calcium [Mass/Vol] 8.6 mg/dL Normal 7.6-11.0 [facility] Comment on above: Performed By: #### L 500.2500 #### [facility] [address] [place], [address] Chloride [Moles/Vol] 109 mmol/L High 98-108 [facility] Comment on above: Performed By: #### L 500.2500 #### [facility] [address] [place], [address] CO2 [Moles/Vol] 22.5 mmol/L Normal 21.0-32.0 [facility] Comment on above: Performed By: #### L 500.2500 #### [facility] [address] [place], [address] Creatinine [Mass/Vol] 0.85 mg/dL Normal 0.70-1.20 [facility] Comment on above: Performed By: #### L 500.2500 #### [facility] [address] [place], [address] GAP 10 Normal 5-15 [facility] Comment on above: Performed By: #### L 500.2500 #### [facility] [address] [place], [address] GFR/1.73 sq M.predicted among non-blacks MDRD (S/P/Bld) [Vol rate/Area] 93 mL/min/{1.73_m2} Normal >60 [facility] Comment on above: Result Comment: mL/m in/1.73m2 CKD-EPI Creatinine Equation (2020) Performed By: #### L 500.2500 #### [facility] [address] [place], [address] Glucose [Mass/Vol] 93 mg/dL Normal 70-99 [facility] Comment on above: Performed By: #### L 500.2500 #### [facility] [address] [place], [address] Potassium [Moles/Vol] 4.5 mmol/L Normal 3.3-5.1 [facility] Comment on above: Performed By: #### L 500.2500 #### [facility] [address] [place], [address] Sodium [Moles/Vol] 142 mmol/L Normal 133-145 [facility] Comment on above: Performed By: #### L 500.2500 #### [facility] [address] [place], [address] Urea nitrogen [Mass/Vol] 23 mg/dL High 4-19 [facility] Comment on above: Performed By: #### L 500.2500 #### [facility] [address] [place], [address] Carbon dioxide, total [Moles /volume] in Central venous bloodOrdered By: Ever Carrillo on 11-29-2024 CO2 [Moles/Vol] 22.5 mmol/L 21.0-32.0 [facility] Chloride assayOrdered By: Susan Carrillo on 11-29-2024 Chloride [Moles/Vol] 109 mmol/L High 98-108 [facility] Glomerular filtration rate ( GFR) estimation/1.73 sq m using serum, plasma, or whole bOrdered By: Ever Carrillo on 11-29-2024 GFR/1.73 sq M.predicted among non-blacks MDRD (S/P/Bld) [Vol rate/Area] 93 mL/min/{1.73_m2} >60 [facility] Comment on above: mL/min/1.73m2 CKD-EP I Creatinine Equation (2020) Potassium measurement (mass/ volume)Ordered By: Ever Carrillo on 11-29-2024 Potassium (Unsp spec) [Mass/Vol] 4.5 mmol/L 3.3-5.1 [facility] Serum creatinine measurement (mass/volume)Ordered By: Ever Carrillo on 11-29-2024 Creatinine [Mass/Vol] 0.85 mg/dL 0.70-1.20 [facility] Serum glucose measurement (m ass/volume)Ordered By: Ever Carrillo on 11-29-2024 Glucose [Mass/Vol] 93 mg/dL 70-99 [facility] Serum or plasma calcium sharon urement (mass/volume)Ordered By: Ever Carrillo on 11-29-2024 Calcium [Mass/Vol] 8.6 mg/dL 7.6-11.0 [facility] Serum or plasma urea nitroge n measurement (mass/volume)Ordered By: Ever Carrillo on 11-29-2024 Urea nitrogen [Mass/Vol] 23 mg/dL High 4-19 [facility] Sodium levelOrdered By: Ever Carrillo on 11-29-2024 Sodium [Moles/Vol] 142 mmol/L 133-145 [facility] Surgical pathology reportOrd ered By: Azucena Jiménez on 11-20-2024 Surgical pathology study [facility] PROSTATE BXon 07-01-2025 PROSTATE BX Patient Age/Sex Location Account Attending Physician ARNIE WOOD 69/M [facility] [id number] Dr. Ever Carrillo MD Specimen: [id number] Received: 11/13/24 Status: MYRA Santos Num: [id number] Spec Type: PROST BX Subm Dr: Dr. Ever Carrillo MD HEADER OPERATION: Prostate biopsy PRE-OP DIAGNOSIS: Elevated PSA TISSUE SUBMITTED: A - Right apex, B - Right mid, C - Right base, D - Left apex, E - Left mid, F - Left base MICROSCOPIC DIAGNOSIS A. Right prostate, apex, core biopsy: - Adenocarcinoma [place] grade 4+4=8, involving one of two cores and 20% of the tissue. B. 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 C. 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 D. Left prostate, apex, core biopsy: - Adenocarcinoma [place] grade 4+5=9, involving one of one core and 70% of the tissue - see note. Note: One core of tissue is recovered after processing. E. Left prostate, mid, core biopsy: - Adenocarcinoma [place] grade 4+5=9, involving one of one core and 75% of the tissue - see note. Note: One core of tissue is recovered after processing. F. Left prostate, base, core biopsy: - Adenocarcinoma [place] grade 4+5=9, involving one of one core and 90% of the tissue - see note. Note: One core of tissue is recovered after processing. MICROSCOPIC DESCRIPTION Slides are reviewed. GROSS DESCRIPTION A - Received is one container designated prostate, right apex. The specimen consists of two elongated fragments of light liu-white soft tissue each measuring 0.9 cm in length and 0.1 cm in diameter. The specimen is totally submitted in one cassette. B - Received is one container designated prostate, right mid. The specimen consists of two elongated fragments of light liu-white soft tissue each measuring 0.6 cm in length and Patient Age/Sex Location Account Attending Physician [facility] WOOD 69[id number]. Ever Carrillo MD 0.1 cm in diameter. The specimen is totally submitted in one cassette. C - Received is one container designated prostate, right base. The specimen consists of two elongated fragments of light liu-white soft tissue each measuring 1.3 cm in length and 0.1 cm in diameter. The specimen is totally submitted in one cassette. D - Received is one container designated prostate, left apex. The specimen consists of two elongated fragments of light liu-white soft tissue each measuring 1.9 cm in length and 0.1 cm in diameter. The specimen is totally submitted in one cassette. E - Received is one container designated prostate, left mid. The specimen consists of two elongated fragments of light liu-white soft tissue each measuring 1.4 cm in length and 0.1 cm in diameter. The specimen is totally submitted in one cassette. F - Received is one container designated prostate, left base. The specimen consists of two elongated fragments of light liu-white soft tissue each measuring 1.4 cm in length and 0.1 cm in diameter. The specimen is totally submitted in one cassette. [place] 11/14/[address] [facility]: [address] x6 Patient Age/Sex Location Account Attending Physician ARNIE WOOD 69/M [facility] [id number] Dr. Ever Carrillo MD Signed (signature on file) Dr. Azucena Jiménez MD 11/20/24 1029 Normal [facility] Comment on above: Performed By: #### P PROSB #### [facility] [address] [facility] [place], [place], [id number] .Auto Diffon 09-14-2024 Basophil, Absolute 0.0 10 3/mcL Normal 0.0-0.3 [facility] Comment on above: Performed By: #### P SAMANUEL, CBC, ANEU #### [address] [address] Basophils/100 WBC (Bld) 0.9 % Normal 0.0-2.5 [facility] Comment on above: Performed By: #### P SA, ADIFF, CBC, ANEU #### [address] [address] Eosinophil, Absolute 0.1 10 3/mcL Normal 0.0-0.7 [facility] Comment on above: Performed By: #### P SA, ADIFF, CBC, ANEU #### [address] [address] Eosinophils/100 WBC (Bld) 2.5 % Normal 0.0-6.0 [facility] Comment on above: Performed By: #### P SA, ADIFF, CBC, ANEU #### [address] [address] Lymphocyte, Absolute 1.2 10 3/mcL Normal 0.9-4.3 [facility] Comment on above: Performed By: #### P SA, ADIFF, CBC, ANEU #### [address] [address] Lymphocytes/100 WBC (Bld) 25.7 % Normal 20.0-40.0 [facility] Comment on above: Performed By: #### P SA, ADIFF, CBC, ANEU #### [address] [address] Monocyte, Absolute 0.6 10 3/mcL Normal 0.1-1.4 [facility] Comment on above: Performed By: #### P SA, ADIFF, CBC, ANEU #### [address] [address] Monocytes/100 WBC (Bld) 12.0 % Normal 2.0-13.0 [facility] Comment on above: Performed By: #### P SA, ADIFF, CBC, ANEU #### [address] [address] Neutrophils/100 WBC (Bld) 58.9 % Normal 50.0-75.0 [facility] Comment on above: Performed By: #### P SA, ADIFF, CBC, ANEU #### [address] [address] .NEUABSon 09-14-2024 Neutrophil, Absolute 2.7 10 3/mcL Normal 2.3-8.1 [facility] Comment on above: Performed By: #### P SA, ADIFF, CBC, ANEU #### [place] [address] CBCon 09-14-2024 Erythrocyte distribution width (RBC) [Ratio] 14.7 % Normal 11.5-15.5 [facility] Comment on above: Performed By: #### P SA, ADIFF, CBC, ANEU #### [place] [address] Hematocrit (Bld) [Volume fraction] 41.2 % Normal 40.0-52.0 [facility] Comment on above: Performed By: #### P SA, ADIFF, CBC, ANEU #### [place] [address] Hgb 13.8 G/dL Normal 13.0-17.5 [facility] Comment on above: Performed By: #### P SA, ADIFF, CBC, ANEU #### [place] [address] MCH (RBC) [Entitic mass] 29.4 pg Normal 27.0-33.0 [facility] Comment on above: Performed By: #### P SA, ADIFF, CBC, ANEU #### [place] [address] MCHC 33.5 G/dL Normal 32.0-36.0 [facility] Comment on above: Performed By: #### P SA, ADIFF, CBC, ANEU #### [place] [address] MCV (RBC) [Entitic vol] 87.7 fL Normal 81.0-100.0 [facility] Comment on above: Performed By: #### P SA, ADIFF, CBC, ANEU #### [place] [address] Platelet 221 10 3/mcL Normal 150-450 [facility] Comment on above: Performed By: #### P SA, ADIFF, CBC, ANEU #### [place] [address] Platelet mean volume (Bld) [Entitic vol] 7.2 fL Normal 6.4-10.5 [facility] Comment on above: Performed By: #### P SA, ADIFF, CBC, ANEU #### [place] [address] [place], [place] [address] RBC 4.70 10 6/mcL Normal 4.50-6.00 [facility] Comment on above: Performed By: #### P SA, ADIFF, CBC, ANEU #### [place] [address] [place], [place] [address] WBC 4.6 10 3/mcL Normal 4.5-10.8 [facility] Comment on above: Performed By: #### P SA, DAVIDIFF, CBC, ANEU #### [place] [address] [place], [place] [address] LABORATORYOrdered By: SYSTEM SYSTEM on 09-14-2024 Basophils (Bld) [#/Vol] 0.0 103/mcL Normal 0.0 - 0.3 10^3/mcL AO Workflow SS Basophils/100 WBC (Bld) 0.9 % Normal 0.0 - 2.5 % AO Workflow SS Eosinophil, Absolute 0.1 103/mcL Normal 0.0 - 0 .7 10^3/mcL AO Workflow SS Eosinophils/100 WBC (Bld) 2.5 % Normal 0.0 - 6.0 % AO Workflow SS Erythrocyte distribution width (RBC) [Ratio] 14.7 % Normal 11.5 - 15.5 % AO Workflow SS Hematocrit (Bld) [Volume fraction] 41.2 % Normal 40.0 - 52.0 % AO Workflow SS Hemoglobin (Bld) [Mass/Vol] 13.8 G/dL Normal 13.0 - 17.5 G/dL AO Workflow SS Lymphocytes (Bld) [#/Vol] 1.2 103/mcL Normal 0.9 - 4.3 10^3/mcL AO Workflow SS Lymphocytes/100 WBC (Bld) 25.7 % Normal 20.0 - 40.0 % AO Workflow SS MCH (RBC) [Entitic mass] 29.4 pg Normal 27.0 - 33.0 pg AO Workflow SS MCHC 33.5 G/dL Normal 32.0 - 36.0 G/dL AO Workflow SS MCV (RBC) [Entitic vol] 87.7 fL Normal 81.0 - 100.0 fL AO Workflow SS Monocytes (Bld) [#/Vol] 0.6 103/mcL Normal 0.1 - 1.4 10^3/mcL AO Workflow SS Monocytes/100 WBC (Bld) 12.0 % Normal 2.0 - 13.0 % AO Workflow SS Neutrophils (Bld) [#/Vol] 2.7 103/mcL Normal 2.3 - 8.1 10^3/mcL AO Workflow SS Neutrophils/100 WBC (Bld) 58.9 % Normal 50.0 - 75.0 % AO Workflow SS Platelet mean volume (Bld) [Entitic vol] 7.2 fL Normal 6.4 - 10.5 fL AO Workflow SS Platelets (Bld) [#/Vol] 221 103/mcL Normal 150 - 450 10^3/mcL AO Workflow SS Prostate specific Ag [Mass/Vol] 32.27 ng/mL High 0.00 - 4.00 ng/mL AO ADM SS RBC (Bld) [#/Vol] 4.70 106/mcL Normal 4.50 - 6.0 0 10^6/mcL AO Workflow SS WBC (Bld) [#/Vol] 4.6 103/mcL Normal 4.5 - 10.8 10^3/mcL AO Workflow SS PSAon 09-14-2024 Prostate Specific Antigen 32.27 ng/mL High 0.00-4.00 [facility] Comment on above: Performed By: #### P SA, ADIFF, CBC, ANEU #### [address] [address] HPYLAGon 05-18-2023 H pylori Stool Ag EIA Negative Normal Negative [facility] ([place]) Comment on above: Result Comment: Perf ormed At: [facility] [address] [id number] Wendy Whitman PhD Ph:[phone] Performed By: #### 1 [address] #### [place] [id number] LABORATORYOrdered By: LABCOR P CONTRIBUTOR_SYSTEM on 05-17-2023 H pylori Stool Ag EIA (LC) Negative Invalid Interpretation Code AO Sendouts SS Comment on above: Result Comment: Perf ormed At: [facility] [address] [id number] Wendy Whitman PhD Ph:[phone] Encounters Encounter Date Encounter Type Care Provider Facility Start: 01-02-2025 ambulatory Ever Carrillo [facility] Start: 12-27-2024 Encounter for preprocedural cardiovascular examination Ever Carrillo [facility] Start: 12-27-[address] [facility] lity:[facility] Start: 12-19-2024 End: 12-19-2024 Emergency department patient visit MUNA ALMAGUER MD [facility] Start: 12-05-2024 Encounter for preprocedural laboratory examination Ever Carrillo [facility] Start: 11-30-2024 End: 11-30-2024 ambulatory Maria G BLANCOFATMATA LORENA [facility] Start: 11-29-2024 End: 11-29-2024 ambulatory RICHAR ANDERSON CRULLER MAKER MACHINE-C Work Phone: -Laboratory Start: 11-29-2024 End: 11-29-[address] Ever Carrillo MD -Laboratory Work Phone: Start: 11-29-2024 End: 11-29-2024 ambulatory Ever Carrillo Facility:[facility] Start: 11-13-2024 End: 11-13-2024 ambulatory RICHAR ANDERSON CRULLER MAKER MACHINE-C Work Phone: -Laboratory Specimen Start: 11-13-2024 End: 11-13-[address] Ever Carrillo MD -Laboratory Specimen Work Phone: Start: 11-13-2024 End: 11-13-2024 ambulatory Ever Carrillo Facility:[facility] Start: 09-14-2024 End: 09-18-2024 ambulatory ILIANA COX CUSTOM STUDIO COORDINATOR-CASH MANAGEMENT COORDINATOR Facility:[facility] Start: 09-14-2024 End: 09-14-2024 ambulatory ILIANA COX CUSTOM STUDIO COORDINATOR-CASH MANAGEMENT COORDINATOR Facility:[facility] Start: 09-14-2024 End: 09-14-2024 Patient encounter procedure ILIANA Howell COX CUSTOM STUDIO COORDINATOR-CASH MANAGEMENT COORDINATOR [facility] Start: 05-17-2023 ambulatory STANISLAW GROSS DO Facili ty:B Start: 05-17-2023 End: 05-21-2023 Outreach Lab STANISLAW GROSS [facility] Payers Date Payer Category Payer Unknown 0 2024 Unknown [id number] 2024 Unknown 2024 Private Health Insurance [id number] 2023 Self-pay 1955 Unknown [id number] 1955 Unknown [id number] 1955 Unknown [id number] [id number] [id number] 1955 Unknown [id number] 2.16.8 [id number] 1955 Unknown [id number] 2.16.8 [id number] Unknown [id number] 2.16.8 [id number] Unknown [id number] 2.16.8 [id number] Unknown [id number] 2.16.8 [id number] Unknown [id number] 2.16.8 [id number] Social History Date Type Detail Facility Start: 11-21-2018 Tobacco smoking status Ex-smoker (fi nding) [facility] Start: 1955 Sex Assigned At Male [facility] Sexual Orientation [facility] Start: 11-08-2018 Sex Male (finding) [facility] Tobacco smoking stat [facility] Unknown if ever smoked [facility] Work Phone: Clinical Notes 09-16-2024 to 12-21-2024 Laboratory Note Date & Type Note Facility 12-21-2024 Note . MICRO - Microbiology PROCEDURE: Urine Culture [*1] SOURCE: Urine, Camp Catheter BODY SITE: COLLECTED DATE/TIME: 12/19/2024 17:21 EDT RECEIVED DATE/TIME: 12/19/2024 19:19 EDT START DATE/TIME: 12/19/2024 19:20 EDT FREE TEXT SOURCE: FINAL REPORTS Final Report [] Verified Date/Time/Personnel: 12/21/2024 07:48 EDT No growth at 48 hours. PRELIMINARY REPORTS Preliminary Report [] Verified Date/Time/Personnel: 12/20/2024 08:56 EDT No growth to date Preliminary Report [] Verified Date/Time/Personnel: 12/19/2024 19:59 EDT Specimen received in lab. Performing Locations *1: This test was performed at: [facility], [address] [place] [address], [phone] , [facility] 12-19-2024 Hospital Discharge instructions Patient Education 12/19/2024 17:52:39 Urinary Retention, Male Urinary Retention (Male) Urinary retention is the medical term for difficulty or inability to pass urine, even though your bladder is full. Causes The most common cause of urinary retention in men is the bladder outlet being blocked. This can be due to an enlarged prostate gland or a bladder infection. Certain medicines can also cause this problem. This condition is more likely to occur as men get older. Symptoms Common symptoms of urinary retention include: Pain (not experienced by everyone) Frequent urination Feeling that the bladder is still full after urinating Incontinence (not being able to control the release of urine) Swollen abdomen Treatment This condition is treated by inserting a tube (catheter) into the bladder to drain the urine. This provides immediate relief. The catheter may need to stay in place for a few days. The catheter has a balloon on the tip, which is inflated after insertion. This prevents the catheter from falling out. Home care If you were given antibiotics, take them until they are used up, or your healthcare provider tells you to stop. It is important to finish the antibiotics even though you feel better. This is to make sure your infection has cleared. If a catheter was left in place, it is important to keep bacteria from getting into the collection bag. Don't disconnect the catheter from the collection bag. Use a leg band to secure the drainage tube, so it does not pull on the catheter. Drain the collection bag when it becomes full using the drain spout at the bottom of the bag. Don't pull on or try to remove your catheter. This will injure your urethra. The catheter must be removed by a healthcare provider. Follow-up care Follow up with your healthcare provider, or as advised. If a catheter was left in place, it can usually be removed within 3 to 7 days. Some conditions require the catheter to stay in longer. Your healthcare provider will tell you when to return to have the catheter removed. When to seek medical advice Call your healthcare provider right away if any of these occur: Fever of 100.4 F (38 C) or higher, or as directed by your healthcare provider Bladder or lower-abdominal pain or fullness Abdominal swelling, nausea, vomiting, or back pain Blood or urine leakage around the catheter Bloody urine coming from the catheter (if a new symptom) Weakness, dizziness, or fainting Confusion or change in usual level of alertness If a catheter was left in place, return if: oCatheter falls out oCatheter stops draining for 6 hours [id number] [employer] [address] [place] [address]. All rights reserved. This information is not intended as a substitute for professional medical care. Always follow your healthcare professional's instructions. 12/19/2024 17:52:27 Camp Catheter, Care Camp Catheter Care A Acmp catheter is a rubber tube that is placed through the urethra (opening where urine comes out) and into the bladder. This helps drain urine from the bladder. There is a small balloon on the end of the tube that is inflated after insertion. This keeps the catheter from sliding out of the bladder. A Camp catheter is used to treat urinary retention (unable to pass urine). It is also used when there is incontinence (loss of bladder control). Home care Finish taking any prescribed antibiotic even if you are feeling better before then. It is important to keep bacteria from getting into the collection bag. Do not disconnect the catheter from the collection bag. Use a leg band to secure the drainage tube, so it does not pull on the catheter. Drain the collection bag when it becomes full using the drain spout at the bottom of the bag. Do not try to pull or remove your catheter. This will injure your urethra. It must be removed by your healthcare provider or nurse. Follow-up care Follow up with your healthcare provider as advised for repeat urine testing and catheter removal or replacement. When to seek medical advice Call your healthcare provider right away if any of these occur: Fever of 100.4 F (38 C) or higher, or as directed by your healthcare provider Bladder pain or fullness Abdominal swelling, nausea or vomiting, or back pain Blood or urine leakage around the catheter Bloody urine coming from the catheter (if a new symptom) Catheter falls out Catheter stops draining for 6 hours Weakness, dizziness, or fainting [id number] [employer] [address] [place] [address]. All rights reserved. This information is not intended as a substitute for professional medical care. Always follow your healthcare professional's instructions. 12/19/2024 17:52:23 Hematuria Blood in the Urine Blood in the urine (hematuria) has many possible causes. If it occurs after an injury (such as a car accident or fall), it is most often a sign of bruising to the kidney or bladder. Common causes of blood in the urine include urinary tract infections, kidney stones, inflammation, tumors, or certain other diseases of the kidney or bladder. Menstruation can cause blood to appear in the urine sample, although it is not coming from the urinary tract. If only a trace amount of blood is present, it will show up on the urine test, even though the urine may be yellow and not pink or red. This may occur with any of the above conditions, as well as heavy exercise or high fever. In this case, your doctor may want to repeat the urine test on another day. This will show if the blood is still present. If it is, then other tests can be done to find out the cause. Home care Follow these home care guidelines: If your urine does not appear bloody (pink, brown or red) then you do not need to restrict your activity in any way. If you can see blood in your urine, rest and avoid heavy exertion until your next exam. Do not use aspirin, blood thinners, or anti-platelet or anti-inflammatory medicines. These include ibuprofen and naproxen. These thin the blood and may increase bleeding. Follow-up care Follow up with your healthcare provider, or as advised. If you were injured and had blood in your urine, you should have a repeat urine test in 1 to 2 days. Contact your doctor for this test. A radiologist will review any X-rays that were taken. You will be told of any new findings that may affect your care. When to seek medical advice Call your healthcare provider right away if any of these occur: Bright red blood or blood clots in the urine (if you did not have this before) Weakness, dizziness or fainting New groin, abdominal, or back pain Fever of 100.4 F (38 C) or higher, or as directed by your healthcare provider Repeated vomiting Bleeding from the nose or gums or easy bruising [id number] [employer] [address] [place] [address]. All rights reserved. This information is not intended as a substitute for professional medical care. Always follow your healthcare professional's instructions. 12/19/2024 17:52:19 Anemia Anemia Anemia is a condition that occurs when your body does not have enough healthy red blood cells (RBCs). RBCs are the parts of your blood that carry oxygen throughout your body. A protein called hemoglobin allows your RBCs to absorb and release oxygen. Without enough RBCs or hemoglobin, your body doesn't get enough oxygen. Symptoms of anemia may then occur. What are the symptoms of anemia? Some people with anemia have no symptoms. But most people have symptoms that range from mild to severe. These can include: Tiredness (fatigue) Weakness Pale skin Shortness of breath Dizziness or fainting Rapid heartbeat Trouble doing normal amounts of activity Jaundice (yellowing of your eyes, skin, or mouth; dark urine) What causes anemia? Anemia can occur when your body: Loses too much blood Does not make enough RBCs Destroys your RBCs at a faster rate than it can replace them Does not make a normal amount of hemoglobin in your RBCs These problems can occur for many reasons, including: A condition that you are born with (congenital or inherited), such as sickle cell disease or thalassemia Heavy bleeding for any reason, including injury, surgery, childbirth, or even heavy menstrual periods Being low in certain nutrients, such as iron, folate, or vitamin B12, possibly from a poor diet or a condition like celiac disease or Crohn's disease Certain chronic conditions like diabetes, arthritis, or kidney disease Certain chronic infections like tuberculosis or HIV Exposure to certain medicines, such as those used for chemotherapy There are different types of anemia. Your healthcare provider can tell you more about the type of anemia you have and what may have caused it. How is anemia diagnosed? To diagnose anemia, your healthcare provider orders blood tests. These can include: Complete blood cell count (CBC). This test measures the amounts of the different types of blood cells. Blood smear. This test checks the size and shape of your blood cells. To do the test, a drop of your blood is viewed under a microscope. A stain is used to make the blood cells easier to see. Iron studies. These tests measure the amount of iron in your blood. Your body needs iron to make hemoglobin in your RBCs. Vitamin B12 and folate studies. These tests check for some of the components that help give RBCs a normal size and shape. Reticulocyte count. This test measures the amount of new RBCs that your bone marrow makes. Hemoglobin electrophoresis. This test checks for problems with your hemoglobin in RBCs. How is anemia treated? Treatment for anemia is based on the type of anemia, its cause, and the severity of your symptoms. Treatments may include: Diet changes. This involves increasing the amount of certain nutrients in your diet, such as iron, vitamin B12, or folate. Your healthcare provider may also prescribe nutrient supplements. Medicines. Certain medicines treat the cause of your anemia. Others help build new RBCs or relieve symptoms. If a medicine is the cause of your anemia, you may need to stop or change it. Blood transfusions. Replacing some of your blood can increase the number of healthy RBCs in your body. Surgery. In some cases, your doctor may do surgery to treat the underlying cause of anemia. If you need surgery, your healthcare provider will explain the procedure and outline the risks and benefits for you. What are the long-term concerns? If you have a certain type of anemia, you can expect a full recovery after treatment. If you have other types of anemia (especially a type you're born with), you will need to manage it for life. Your doctor can tell you more. [phone] [employer] [address] [place] [address], [place] [address]. All rights reserved. This information is not intended as a substitute for professional medical care. Always follow your healthcare professional's instructions. Follow Up Care 12/19/2024 14:17:11 With:EVER CARRILLO Address: [address] [place] [phone] Business (1) When:2-4 days Comments:Schedule appointment as soon as possibleReturn to ED if symptoms worsenCall for follow-up for reevaluation and possible catheter removal With:POOJA STEVE Address: [address] [place] [address] [phone] Business (1) When:12/20/2024 Comments:Schedule appointment as soon as possibleReturn to ED if symptoms worsen With:STANISLAW GROSS Address: [address] [place] [address] [phone] Business (1) When:2-4 days Comments:Schedule appointment as soon as possibleReturn to ED if symptoms worsenCall in a.m. to see if the urine cultures are back if not call the next dayReturn to the emergency room for any recurrent signs of obstruction or signs of infectious illnessHold your Coumadin tonight and restart tomorrow if no bleeding problems [facility] 12-19-2024 Emergency department Discharge summary Discharge Instructions Thank you for allowing [facility] to assist you with your healthcare needs. The following is important discharge information regarding your hospital visit. Diagnosis from Today's Visit Anemia Hematuria Urinary retention What to Do Next Instructions from Your Care Team No qualifying data available. Post Acute Orders No qualifying data available. You Need to Schedule the Following Appointments Follow Up with EVER CARRILLO When:Within 2-4 days Where:[address] [place] [phone] Business (1) Additional Information: Schedule appointment as soon as possible Return to ED if symptoms worsen Call for follow-up for reevaluation and possible catheter removal Follow Up with STANISLAW GROSS When:Within 2-4 days Where:[address] [facility] [place] [address]- [phone] Business (1) Additional Information: Schedule appointment as soon as possible Return to ED if symptoms worsen Call in a.m. to see if the urine cultures are back if not call the next day Return to the emergency room for any recurrent signs of obstruction or signs of infectious illness Hold your Coumadin tonight and restart tomorrow if no bleeding problems Follow Up with POOJA STEVE When:12/20/2024 12:00 AM EDT Where:[address] [place] [address]- [phone] Business (1) Additional Information: Schedule appointment as soon as possible Return to ED if symptoms worsen Allergies [facility] Medications Please ask your primary doctor or pharmacist before taking any other medication not listed, including over the counter drugs, herbal medications, vitamins and or supplements as they may interact with your home medications. What How Much When Why Instructions Last Dose Unchanged esomeprazole (esomeprazole 40 mg oral delayed release capsule) 1 cap by mouth Once a day Duration: 90 Days Unchanged tamsulosin (Flomax 0.4 mg oral capsule) 1 cap by mouth Once a day Acute prostatitis Incomplete emptying of bladder Duration: 90 Days Unchanged venlafaxine (venlafaxine 75 mg oral capsule, extended release) 1 cap by mouth Once a day Unchanged warfarin (warfarin 5 mg oral tablet) 1 tab(s) by mouth Once a day Please take this list to your next doctor s visit. Bring all medications you take, including over the counter medications, herbals and other supplements with you to your doctor s visit. Patients and families are reminded to discard old lists and to update any records with all medication providers or retail pharmacies. Education Materials Urinary Retention (Male) Urinary retention is the medical term for difficulty or inability to pass urine, even though your bladder is full. Causes The most common cause of urinary retention in men is the bladder outlet being blocked. This can be due to an enlarged prostate gland or a bladder infection. Certain medicines can also cause this problem. This condition is more likely to occur as men get older. Symptoms Common symptoms of urinary retention include: Pain (not experienced by everyone) Frequent urination Feeling that the bladder is still full after urinating Incontinence (not being able to control the release of urine) Swollen abdomen Treatment This condition is treated by inserting a tube (catheter) into the bladder to drain the urine. This provides immediate relief. The catheter may need to stay in place for a few days. The catheter has a balloon on the tip, which is inflated after insertion. This prevents the catheter from falling out. Home care If you were given antibiotics, take them until they are used up, or your healthcare provider tells you to stop. It is important to finish the antibiotics even though you feel better. This is to make sure your infection has cleared. If a catheter was left in place, it is important to keep bacteria from getting into the collection bag. Don't disconnect the catheter from the collection bag. Use a leg band to secure the drainage tube, so it does not pull on the catheter. Drain the collection bag when it becomes full using the drain spout at the bottom of the bag. Don't pull on or try to remove your catheter. This will injure your urethra. The catheter must be removed by a healthcare provider. Follow-up care Follow up with your healthcare provider, or as advised. If a catheter was left in place, it can usually be removed within 3 to 7 days. Some conditions require the catheter to stay in longer. Your healthcare provider will tell you when to return to have the catheter removed. When to seek medical advice Call your healthcare provider right away if any of these occur: Fever of 100.4 F (38 C) or higher, or as directed by your healthcare provider Bladder or lower-abdominal pain or fullness Abdominal swelling, nausea, vomiting, or back pain Blood or urine leakage around the catheter Bloody urine coming from the catheter (if a new symptom) Weakness, dizziness, or fainting Confusion or change in usual level of alertness If a catheter was left in place, return if: oCatheter falls out oCatheter stops draining for 6 hours [phone] [employer] [address] [place] [address], [place] [address]. All rights reserved. This information is not intended as a substitute for professional medical care. Always follow your healthcare professional's instructions. Camp Catheter Care A Camp catheter is a rubber tube that is placed through the urethra (opening where urine comes out) and into the bladder. This helps drain urine from the bladder. There is a small balloon on the end of the tube that is inflated after insertion. This keeps the catheter from sliding out of the bladder. A Camp catheter is used to treat urinary retention (unable to pass urine). It is also used when there is incontinence (loss of bladder control). Home care Finish taking any prescribed antibiotic even if you are feeling better before then. It is important to keep bacteria from getting into the collection bag. Do not disconnect the catheter from the collection bag. Use a leg band to secure the drainage tube, so it does not pull on the catheter. Drain the collection bag when it becomes full using the drain spout at the bottom of the bag. Do not try to pull or remove your catheter. This will injure your urethra. It must be removed by your healthcare provider or nurse. Follow-up care Follow up with your healthcare provider as advised for repeat urine testing and catheter removal or replacement. When to seek medical advice Call your healthcare provider right away if any of these occur: Fever of 100.4 F (38 C) or higher, or as directed by your healthcare provider Bladder pain or fullness Abdominal swelling, nausea or vomiting, or back pain Blood or urine leakage around the catheter Bloody urine coming from the catheter (if a new symptom) Catheter falls out Catheter stops draining for 6 hours Weakness, dizziness, or fainting [id number] [employer] [address] [place] [address]. All rights reserved. This information is not intended as a substitute for professional medical care. Always follow your healthcare professional's instructions. Blood in the Urine Blood in the urine (hematuria) has many possible causes. If it occurs after an injury (such as a car accident or fall), it is most often a sign of bruising to the kidney or bladder. Common causes of blood in the urine include urinary tract infections, kidney stones, inflammation, tumors, or certain other diseases of the kidney or bladder. Menstruation can cause blood to appear in the urine sample, although it is not coming from the urinary tract. If only a trace amount of blood is present, it will show up on the urine test, even though the urine may be yellow and not pink or red. This may occur with any of the above conditions, as well as heavy exercise or high fever. In this case, your doctor may want to repeat the urine test on another day. This will show if the blood is still present. If it is, then other tests can be done to find out the cause. Home care Follow these home care guidelines: If your urine does not appear bloody (pink, brown or red) then you do not need to restrict your activity in any way. If you can see blood in your urine, rest and avoid heavy exertion until your next exam. Do not use aspirin, blood thinners, or anti-platelet or anti-inflammatory medicines. These include ibuprofen and naproxen. These thin the blood and may increase bleeding. Follow-up care Follow up with your healthcare provider, or as advised. If you were injured and had blood in your urine, you should have a repeat urine test in 1 to 2 days. Contact your doctor for this test. A radiologist will review any X-rays that were taken. You will be told of any new findings that may affect your care. When to seek medical advice Call your healthcare provider right away if any of these occur: Bright red blood or blood clots in the urine (if you did not have this before) Weakness, dizziness or fainting New groin, abdominal, or back pain Fever of 100.4 F (38 C) or higher, or as directed by your healthcare provider Repeated vomiting Bleeding from the nose or gums or easy bruising [id number] [employer] [address] [place] [address]. All rights reserved. This information is not intended as a substitute for professional medical care. Always follow your healthcare professional's instructions. Anemia Anemia is a condition that occurs when your body does not have enough healthy red blood cells (RBCs). RBCs are the parts of your blood that carry oxygen throughout your body. A protein called hemoglobin allows your RBCs to absorb and release oxygen. Without enough RBCs or hemoglobin, your body doesn't get enough oxygen. Symptoms of anemia may then occur. What are the symptoms of anemia? Some people with anemia have no symptoms. But most people have symptoms that range from mild to severe. These can include: Tiredness (fatigue) Weakness Pale skin Shortness of breath Dizziness or fainting Rapid heartbeat Trouble doing normal amounts of activity Jaundice (yellowing of your eyes, skin, or mouth; dark urine) What causes anemia? Anemia can occur when your body: Loses too much blood Does not make enough RBCs Destroys your RBCs at a faster rate than it can replace them Does not make a normal amount of hemoglobin in your RBCs These problems can occur for many reasons, including: A condition that you are born with (congenital or inherited), such as sickle cell disease or thalassemia Heavy bleeding for any reason, including injury, surgery, childbirth, or even heavy menstrual periods Being low in certain nutrients, such as iron, folate, or vitamin B12, possibly from a poor diet or a condition like celiac disease or Crohn's disease Certain chronic conditions like diabetes, arthritis, or kidney disease Certain chronic infections like tuberculosis or HIV Exposure to certain medicines, such as those used for chemotherapy There are different types of anemia. Your healthcare provider can tell you more about the type of anemia you have and what may have caused it. How is anemia diagnosed? To diagnose anemia, your healthcare provider orders blood tests. These can include: Complete blood cell count (CBC). This test measures the amounts of the different types of blood cells. Blood smear. This test checks the size and shape of your blood cells. To do the test, a drop of your blood is viewed under a microscope. A stain is used to make the blood cells easier to see. Iron studies. These tests measure the amount of iron in your blood. Your body needs iron to make hemoglobin in your RBCs. Vitamin B12 and folate studies. These tests check for some of the components that help give RBCs a normal size and shape. Reticulocyte count. This test measures the amount of new RBCs that your bone marrow makes. Hemoglobin electrophoresis. This test checks for problems with your hemoglobin in RBCs. How is anemia treated? Treatment for anemia is based on the type of anemia, its cause, and the severity of your symptoms. Treatments may include: Diet changes. This involves increasing the amount of certain nutrients in your diet, such as iron, vitamin B12, or folate. Your healthcare provider may also prescribe nutrient supplements. Medicines. Certain medicines treat the cause of your anemia. Others help build new RBCs or relieve symptoms. If a medicine is the cause of your anemia, you may need to stop or change it. Blood transfusions. Replacing some of your blood can increase the number of healthy RBCs in your body. Surgery. In some cases, your doctor may do surgery to treat the underlying cause of anemia. If you need surgery, your healthcare provider will explain the procedure and outline the risks and benefits for you. What are the long-term concerns? If you have a certain type of anemia, you can expect a full recovery after treatment. If you have other types of anemia (especially a type you're born with), you will need to manage it for life. Your doctor can tell you more. [phone] [employer] [address] [place] [address], [place] [address]. All rights reserved. This information is not intended as a substitute for professional medical care. Always follow your healthcare professional's instructions. Additional Information VACCINATE! IT SAVES LIVES! Members of the community who have not yet received the COVID-19 vaccine and would like to receive it can visit one of [facility] vaccine clinics. There are many vaccine clinic locations within the [facility]. For locations and available times, please visit [email or web address].[place]. gov/. It is important to note that some COVID mobile vaccine clinics are held outdoors and may be canceled in rainy or stormy conditions. To learn more about pediatric vaccinations (ages 5-11), we invite you to visit the [facility] webpage. https://www.[employer].org/p ages/8298-Cajtn-Jzruhjrshrh-Freq cixwkb-Ljzhe-Bdcncyzew.html To learn more about the COVID-19 vaccine, we invite you to visit the CDC website for a list of frequently asked questions. https://www.cdc.gov/coronavirus/ 2019-ncov/vaccines/faq.html [facility] Patient Portal Access Instructions: Stay connected with your healthcare team and access your personal medical information anytime with the [facility] Patient Portal. If you would like a full copy of your medical records please contact the [facility] Medical Records Department Tuesday through Tuesday between 8a.m. and 4:30p.m. Please follow the directions below to access the portal: 1.Access the email account you provided upon registration to the hospital.2.Look for an invitation email from [facility].3.Open the email and access the invitation link: Accept Invitation to [facility]4.Fill in the required naqvi to create your account. Sign into [email or web address] with your username and password that you created in the above steps to stay up to date. You can then view a summary of results, a summary of your visits, and the ability to download your summaries to your computer or send the information securely to a physician. Remember that your healthcare information is confidential, so carefully consider who you will allow to register on the [facility] Patient Portal for access to your information. You can also access the [facility] Patient Portal on the [employer]. Simply click on Health Records under Health Data and then click on the [employer] logo. HOW TO SAFELY DISPOSE OF PRESCRIPTION MEDICATIONS Please use one of the following methods to safely dispose of your unused medications. 1.Use a drug disposal kit: the drug disposal pouch allows you to safely discard your old and unused drugs. Ask your nurse to give you one when you are discharged.2.Visit a local take-back location: Many local pharmacies and police departments have programs that collect old and unwanted prescription drugs. Call your local pharmacy or go to http://[employer].Infopia/4H2Xy0o to find one close to you.3.Make use of household items: Use cat litter or old coffee grounds to dispose medications if other options are not available. Mix your drugs with these household products, seal them in an airtight container and throw it into the garbage. Call [facility]: [phone] to be sure your drugs can be disposed of in this way. Some medicines may require a different approach.4.Never flush your medications down the toilet. IF YOU HAVE BEEN PRESCRIBED AN OPIOIDS FOR PAIN If you have been prescribed an opioid (such as hydrocodone, oxycodone or morphine), it is critical to understand the possible side effects and risks of opioid pain medications. Even when taken as directed, opioids can have several side effects including: Tolerance, meaning you might need to take more of a medication for the same pain relief. Nausea, vomiting and/or constipation. Sleepiness, dizziness, dry mouth, confusion, depression or itching. Physical dependence, meaning you have withdrawal symptoms when a medication is stopped ? this can develop within a few days. KNOW YOUR RESPONSIBILITIES It is important to know exactly how much and how often to take the opioid pain medications you are prescribed. Never take opioids in higher amounts or more often than prescribed. Do not combine opioids with alcohol or other drugs that cause drowsiness, such as benzodiazepines, also known as benzos, including diazepam and alprazolam, muscle relaxants or sleep aids. Never sell or share prescription opioids. This is illegal. Store opioids in a secure place and out of reach of others (including children, family, friends and visitors). The last page(s) of this document has been signed and retained as a CHART COPY Signatures Patient Education Materials Urinary Retention, Male Camp Catheter, Care Hematuria Anemia Medication Leaflets My discharge plan and instructions have been reviewed and explained to me and I,ARNIE WOOD understand my current condition and have read and understand these discharge instructions. I have received a written copy of the plan/instructions. If I have questions, I am aware that I should contact my doctor. 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 MICRO - Microbiology PROCEDURE: Urine Culture [*1] SOURCE: Urine, Clean Catch BODY SITE: COLLECTED DATE/TIME: 09/14/2024 16:15 EDT RECEIVED DATE/TIME: 09/14/2024 18:48 EDT START DATE/TIME: 09/14/2024 18:48 EDT FREE TEXT SOURCE: FINAL REPORTS Final Report [] Verified Date/Time/Personnel: 09/16/2024 07:37 EDT No growth at 48 hours. PRELIMINARY REPORTS Preliminary Report [] Verified Date/Time/Personnel: 09/15/2024 11:00 EDT No growth to date Preliminary Report [] Verified Date/Time/Personnel: 09/14/2024 20:00 EDT Specimen received in lab. Performing Locations *1: This test was performed at: [facility], [address] [place] [address], [id number] , [facility] Evaluation + Plan note Future Appointments Appointment Date:07/05/2023 10:45:00 AM Scheduled Provider: Location:[facility] Appointment Type:PC Nurse Protime Appointment Date:11/15/2023 10:30:00 AM Scheduled Provider:STANISLAW GROSS DO Location:[facility] Appointment Type:PC OV Future Scheduled TestsProstate Specific Antigen 11/09/22Complete Blood Count 11/09/22Lipid Profile 11/09/22Complete Metabolic Panel 11/09/22 [facility] Evaluation + Plan note Future Appointments Appointment Date:12/04/2024 10:45:00 AM Scheduled Provider: Location:[facility] Appointment Type:PC Nurse Appointment Date:03/05/2025 10:30:00 AM Scheduled Provider:STANISLAW GROSS DO Location:[facility] Appointment Type:PC OV [facility] Evaluation + Plan note Future Appointments Appointment Date:03/05/2025 10:30:00 AM Scheduled Provider:STANISLAW GROSS DO Location:[facility] Appointment Type:PC OV [facility] Evaluation note No assessment inform ation available [facility] Work Phone: Hospital course Narrative No data available for this section [facility] Hospital Discharge instructions No data available for this section [facility] Progress note No data available for this section [facility] Reason for referral (narrative) No reason for referral information available [facility] Work Phone: Summary Purpose Family History No Family History Records Found No data available for this section No data available for this section No Family History Records Found No data available for this section No Family History Records FoundNo Family History Records Found Advance Directives No Advanced Directives Records FoundNo Advanced Directives Records FoundNo Advanced Directives Records FoundNo Advanced Directives Records Found Additional Source Comments (unrecognized sect ion and content) No Status Records FoundNo Status Records FoundNo Status Records FoundNo Status Records Found INFORMATION SOURCE (unrecogn ized section and content) DATE CREATED AUTHOR 05/20/2023 [facility] DATE CREATED AUTHOR AUTHOR'S ORGANIZ ATION 12/05/2024 [facility] DATE CREATED AUTHOR AUTHOR'S ORGANIZ ATION 12/27/2024 [facility] DATE CREATED AUTHOR AUTHOR'S ORGANIZ ATION 12/29/2024 [facility] Patient Care team informatio n (unrecognized section and content) Team Status: Active Member Role/Relationship Status Dates RICHAR ANDEROSN NP-C Primary Care Provider Active Team Status: Inactive Member Role/Relationship Status Dates RICHAR ANDERSON NP-C Primary Care Provider Active Start: November 13, 2024 End: November 13, 2024 Dr. Ever Carrillo MD Attending Provider Active Start: November 13, 2024 End: November 13, 2024 Dr. Ever Carrillo MD Referring Provider Active Start: November 13, 2024 End: November 13, 2024 Team Status: Inactive Member Role/Relationship Status Dates RICHAR ANDERSON NP-Luis Primary Care Provider Active Start: November 29, 2024 End: November 29, 2024 Dr. Ever Carrillo MD Attending Provider Active Start: November 29, 2024 End: November 29, 2024 Dr. Ever Carrillo MD Referring Provider Active Start: November 29, 2024 End: November 29, 2024 Goals (unrecognized section and content) Goals may be documented in a n alternate section FOR RECORDS PERTAINING TO PATIENTS WHO ARE OR HAVE BEEN ENROLLED IN A CHEMICAL DEPENDENCY/SUBSTANCEABUSE PROGRAM, SOME INFORMATION MAY BE OMITTED. This clinical summary was aggregated from multiple sources. Caution should be exercised in using it in the provision of clinical care. This summary normalizes information from multiple sources, and as a consequence, information in this document may materially change the coding, format and clinical context of patient data. In addition, data may be omitted in some cases. CLINICAL DECISIONS SHOULD BE BASED ON THE PRIMARY CLINICAL RECORDS. [employer] provides no warranty or guarantee of the accuracy or completeness of information in this document.
[2025-01-02 06:43] LABS: INR Fingerstick 1.3
[2025-01-02] MEDS: Lactated Ringers 1,000 ML 15 ML IV ×2 (07:20→09:59)
--- NOTE | 2025-01-02 07:31 | PCM.PRE.AN2 ---
ASA Classification* ASA Classification ASA Classification: 3 Assessment & Plan Anesthesia* Anesthesia Assessment Anesthesia Assessment: Discussed sedation and/or anesthesia options, risks, benefits, and alternatives with patient/parents/legal guardian/POA. Questions invited. The patient/parents/legal guardian/POA seems to understand and agrees to proceed with anesthesia plan. Reviewed the physical assessment, medical history, allergy history and patient home medications list prior to surgery/procedure/anesthetic and documented any changes. Performed airway and anesthesia risk assessments. Anesthesia Type Anesthesia Type: General History Source History Obtained from:: Patient and Chart Anesthesia Focused Assessment* Temperature: 97.2 F Pulse Rate: 60 Blood Pressure: 124/61 Respiratory Rate: 18 Pulse Ox: 97 Oxygen Delivery Method: Room Air Airway Assessment Mouth opens: >3 cm Mallampati Score: II Teeth Condition: Dentures (Patient has full upper and lower dentures. 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 When Was Last Pacemaker Check QUESTION #4 FULL TEXT: You/Your Family Experience fever (hyperthermia) with Anesthesia Last Oral Intake Last Oral intake: Last Oral Intake NPO since 00:00 01/02/25 07:03 Meds taken in AM with sips of water? Meds patient instructed to take am of surgery PONV PONV - tubing machine tender: PONV - tubing machine tender Female No 12/27/24 09:11 HX of Motion Sickness No 12/27/24 09:11 HX of N/V After Surgery No 12/27/24 09:11 Non-Smoker Yes 12/27/24 09:11 Duration of Surgery greater Yes 12/27/24 09:11 than 60 minutes Number of Risk Factors 2 12/27/24 09:11 PONV Score Moderate Risk 12/27/24 09:11 Height & Weight Height & Weight: Anesthesia: Height & Weight Height 5 ft 8 in 01/02/25 07:03 Weight: 86 kg 01/02/25 07:03 Body Mass Index (BMI) 28.8 01/02/25 07:03 Respiratory Assessment Respiratory Assessment - tubing machine tender: Respiratory Tract Infection Hx - tubing machine tender Hx Respiratory Tract Infection No 12/27/24 09:11 STOP Sleep Apnea STOP Sleep Apnea - tubing machine tender: STOP Sleep Apnea - tubing machine tender Hx Hypertension No 12/27/24 09:11 Hx Sleep Apnea No 12/27/24 09:11 CPAP BIPAP Do you snore loudly (louder Yes 12/27/24 09:11 than talking or can be heard Do you often feel tired/ No 12/27/24 09:11 fatigued/ sleepy during daytime? Has anyone observed you stop No 12/27/24 09:11 breathing during sleep? STOP Results Negative 12/27/24 09:11 QUESTION #5 FULL TEXT : Do you snore loudly (louder than talking or can be heard through closed doors)? 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 Specify any problems Hx of Preganancy in last 3 N/A 12/27/24 09:11 Months Nurse Filling Out Transfusion NBUCHER 12/27/24 09:11 & Questions: Date: 12/27/24 12/27/24 09:11 Time: 09:15 12/27/24 09:11 Patient unable to answer at this time (ie. confused, unrespo /Reproduction History /Reproductive History - tubing machine tender: /Reproductive Hx- tubing machine tender Hx Now No 12/27/24 09:11 Gestational Age (in weeks): EDC: Hx Hx Para Hx Section SAB No 12/27/24 09:11 Active Medications Active Medications: Current Medications Generic Name Dose Route Start Last Admin Trade Name Freq PRN Reason Stop Dose Admin Cefazolin Sodium 2 gm/ Sodium 110 mls @ 200 mls/hr 01/02/25 08:30 Chloride IV 01/02/25 09:02 INTRAOP ONE Lactated Ringer's 1,000 mls @ 15 mls/hr 01/02/25 06:45 01/02/25 07:20 IV 15 mls/hr .Q48H ESPERANZA Administration PFSH Medical History Wears hearing aid Loss of hearing Wears glasses Wears dentures Depression Anxiety History of steroid therapy Cancer Prostate cancer BPH (benign prostatic hyperplasia) Prostate disease Restless legs Pulmonary embolism DVT (deep venous thrombosis) History of IBS Former smoker History of edema Leg cramps Home Medications ?Medication ?Instructions ?Recorded ?Last Taken ?Type dicyclomine 10 mg capsule 10 mg PO BID 12/27/24 01/01/25 History enzalutamide 80 mg tablet (Xtandi) 160 mg PO DAILY 12/27/24 01/01/25 History lorazepam 1 mg tablet 1 mg PO BID PRN anxiety 12/27/24 01/01/25 History warfarin 5 mg tablet 5 mg PO DAILY 12/27/24 12/27/24 History Allergy/AdvReac Type Severity Reaction Status Date / Time No Known Allergies Allergy Verified 01/02/25 07:02 Surgical History History of colonoscopy History of esophagogastroduodenoscopy (EGD) History of prostate biopsy History of foot surgery History of hernia repair Social History Smoking Status: Former smoker Review of Systems (Anesthesia) ROS Narrative System reviewed and no additional complaints, except as documented.
--- NOTE | 2025-01-02 08:30 | PROS_PTH ---
PATIENT: ARNIE WOOD LOC: MS3 U#:[id number] AGE/SX: 69/M [place] [facility] [place]: Dr. Ever Beltrán MD : 1955 BED: 1 DIS: 01/03/2025 SPEC #: [id number] RECD: 01/02/25 10:34 STATUS: MYRA BOY #: [id number] DOROTHY: 01/02/25 08:[address]: Ever Beltrán DEPT: SURGICAL PATHOLOGY RECD BY: Woody Bradley ENTERED: 01/02/25 11:00 SP TYPE: TURP OTHR DR: Dr. Galdino Mejia, DO Tissues: A - Prostate, NOS Procedures: Surgery Specimen Level IV HEADER OPERATION: Cysto, transurethral resection, prostate PRE-OP DIAGNOSIS: Prostate cancer TISSUE SUBMITTED: A- Prostate chips MICROSCOPIC DIAGNOSIS A. Prostate, transurethral resection: - Adenocarcinoma Charissa 4+5=9 involving 90% of the tissue with areas of necrosis. MICROSCOPIC DESCRIPTION Slides are reviewed. GROSS DESCRIPTION A. Received in formalin labeled with the patient's name and date of . Designated as prostate tissue is a 9.7 g, 6.1 x 4.5 x 1.5 cm aggregate of irregular, liu, rubbery and cauterized tissue fragments. Entirely submitted in 8 cassettes. [place] 01/02/2025 CPT:73667
[2025-01-02] MEDS: Cefazolin 1 GM/5 ML Vial 2 GM IV (08:45)
[2025-01-02] MEDS: Lidocaine 1% (5 ml sdv) 5 ML Vial 3 ML IV (08:50)
[2025-01-02] MEDS: fentaNYL 100 MCG/2 ML Ampul IV (09:00)
--- NOTE | 2025-01-02 09:26 | OP.PCM_ITS ---
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: No Type of Anesthesia: General RN Documented Start/Stop Times: Operation Date: 01/02/25 08:30 Case Time Into Pre-Op 01/02/25 06:40 Out of Pre-Op 01/02/25 08:38 Anesthesia Start 01/02/25 08:44 Into Room 01/02/25 08:44 Procedure Start 01/02/25 08:58 Procedure End 01/02/25 09:19 Procedure Start Time: 08:58 Procedure Stop Time: 09:19 Select all DRAINS/GRAFTS/IMPLANTS that apply: None Estimated Blood Loss: Minimal Specimen collected: Yes Description of specimen(s) removed: Prostate chips Description of surgery: This is a 69-year-old male who has advanced prostate cancer metastatic he has very large obstructive prostate and has developed retention of urine he is on medical therapy for his prostate cancer with hormone deprivation therapy taken Xtandi and hormone deprivation therapy injections cancer has been responding to treatment but has developed retention of urine despite the treatment options of management were discussed with the patient to learn either self intermittent catheterization chronic catheter or have surgery to resect the obstructing tissue which is likely prostate cancer patient elected to have surgery talk about the risk of surgery including risk of bleeding infection and bladder control problems. Patient was taken back to the operating room after induction of anesthesia he was placed in dorsolithotomy position the existing catheter was removed penis and testicles were prepped and draped in usual sterile fashion. I went into the bladder with a 26 Beninese continuous-flow Olympus bipolar resectoscope identified the verumontanum identified the right and left lobe of the prostate obstruction here but up in the roof of the prostate coming from the 12:00 of the prostate with a large mass that was cancerous mass that was ball valving and causing obstruction from above so started resection in the 6 o'clock position back to the verumontanum resected the right lobe of the tissue resect the left lobe of the prostate tissue and then took most of the time resecting this anterior obstructing tissue resected all the way down to the bladder muscle fibers and resected this open so they had a nice open channel then from the sphincter all the way into the bladder I did a flow test he had an adequate flow removed all the chips cauterized the inside of the prostate to obtain hemostasis we then placed a 22 Beninese catheter into the bladder with continuous bladder irrigation the urine was clear he was extubated taken back to the PACU in stable condition will stay overnight for irrigation and we will remove the catheter tomorrow morning for a voiding trial. Surgical Findings: Obstruction from cancer in the prostate Complications Complications: No Admit VTE Documentation VTE Present on Admission: No VTE Mechan Device Prophylaxis: SCD's VTE Pharm Prophylaxis ordered?: No
--- NOTE | 2025-01-02 09:26 | DCINST_ITS ---
Discharge Instructions DC O2, CPAP, BIPAP needs Home O2 Discharge instructions: No Dressing / Incision Discharge Activity: Return to Normal Activity and May Not Drive (while taking narcotic pain medications.) Dressing / Incision Call your doctor if you observe: Fever of 101 or Higher Follow Up Care Please Follow Up With: Ever Beltrán MD When: Call [phone] for an appointment Test Results: Test results from this visit will be discussed in further detail at your follow- up appointment, if applicable. Discharge Plan Admission Primary Reason for Your Visit: Transurethral section of prostate Attending Provider: Ever Beltrán Primary Care Provider: Galdino Mejia Instructions Print Language: Lithuanian Discharge Orders/Prescriptions Prescriptions: New ciprofloxacin HCl [Cipro] 500 mg tablet 500 mg PO BID Qty: 10 0RF Continued dicyclomine 10 mg capsule 10 mg PO BID Xtandi 80 mg tablet 160 mg PO DAILY lorazepam 1 mg tablet 1 mg PO BID PRN (Reason: anxiety) Held warfarin 5 mg tablet 5 mg PO DAILY Hold Instructions: Resume on 01/16/25. Other Ambulatory Orders: 12 Lead EKG (Routine) Location: None Selected Ordered By: Dr. Dennis Smith Referrals / Follow Up: Ever Beltrán MD [Med Staff - Active Staff] - Galdino Mejia DO [Primary Care Provider] - Disposition Disposition (needs filled in before D/C Order can be placed): Home, Self Care
--- NOTE | 2025-01-02 09:34 | PCM.POST.ANE ---
Anesthesia: Postop Eval I Current Vital Signs Temperature: 97.5 F Pulse Rate: 58 Blood Pressure: 122/58 Respiratory Rate: 16 Pulse Ox: 94 Oxygen Delivery Method: Room Air Assessment Airway patent: Yes Spontaneous unlabored respirations: Yes Mental status: Asleep nausea: No Vomiting: No Anesthesia Complication: No Fluid Hydration Crystalloid volume administer (ml): 800 Total IV fluid infused: 800 Progress Note Anesthesia document: Postop Eval 1 completed: Yes
[2025-01-02] MEDS: 0.9% Normal Saline (1000mL) 1,000 ML 50 ML IV (10:49)
[2025-01-03 00:29] VITALS: BP 116/69; PULSE 66; RESP 18; TEMP 36.4; O2SAT 96
[2025-01-03 04:30] VITALS: BP 101/54; PULSE 65; RESP 18; TEMP 36.5; O2SAT 99
--- NOTE | 2025-01-03 07:19 | PCM.DC.SUM ---
Providers Date of Admission: 01/02/25 Primary Care Physician: Dr. Galdino Mejia DO Reason For Visit: CYSTO,TRANSURETHRAL RESECTION PROSTRATE Medications at Discharge Home Medications dicyclomine 10 mg capsule 10 mg PO BID 12/27/24 enzalutamide 80 mg tablet (Xtandi) 160 mg PO DAILY 12/27/24 lorazepam 1 mg tablet 1 mg PO BID PRN anxiety 12/27/24 warfarin 5 mg tablet 5 mg PO DAILY 12/27/24 Held on 01/02/25. Instructions: Resume on 01/16/25. ciprofloxacin HCl 500 mg tablet (Cipro) 500 mg PO BID #10 tabs 01/02/25 Hospital Course Operations TURP Weight / BMI Weight Weight: 86 kg Body Mass Index (BMI) 28.8 D/C Instructions Call your doctor if you observe: Fever of 101 or Higher DC O2, CPAP, BIPAP Needs Home O2 Discharge instructions: No Please Follow Up With: Ever Beltrán MD When: Call [phone] for an appointment Meaningful Use Info Meaningful Use Meaningful Use Diagnoses (Choose all that apply): None applicable Discharge Plan Admission Admit Date/Time: 01/02/25 09:24 Primary Reason for Your Visit: Transurethral section of prostate Attending Provider: Ever Beltrán Primary Care Provider: Galdino Mejia Discharge Orders/Prescriptions Prescriptions: New ciprofloxacin HCl [Cipro] 500 mg tablet 500 mg PO BID Qty: 10 0RF Continued dicyclomine 10 mg capsule 10 mg PO BID Xtandi 80 mg tablet 160 mg PO DAILY lorazepam 1 mg tablet 1 mg PO BID PRN (Reason: anxiety) Held warfarin 5 mg tablet 5 mg PO DAILY Hold Instructions: Resume on 01/16/25. Other Ambulatory Orders: 12 Lead EKG (Routine) Location: None Selected Ordered By: Dr. Dennis Smith Referrals / Follow Up: vEer Beltrán MD [Med Staff - Active Staff] - Galdino Mejia DO [Primary Care Provider] - Disposition Discharge Orders: Discharge Patient (Routine); Ordered 01/03/25 Ordered By: Dr. Ever Beltrán
[2025-01-03 08:58] VITALS: BP 113/57; PULSE 66; RESP 16; TEMP 36.6; O2SAT 97
--- NOTE | 2025-01-03 09:14 | CASEMGMT ---
Noted 6cl=18. Pt seen ambulating the halls with nurse without haile or AD.
--- NOTE | 2025-01-03 11:32 | PHA.DC.MC.R ---
Pharmacy [facility] Counseling Pharmacy Service has performed discharge medication reconciliation and counseling for this patient. The patient's discharge medication list was reviewed for discrepancies and discrepancies were resolved. The patient was counseled on the following discharge medications and changes in medications for homegoing were reviewed. 1. CIPRO The Reason for Use, instructions for use, and potential side effects were reviewed for all new medications. The patient's questions regarding all of their medications were answered. The patient was able to verbally demonstrate an understanding of their discharge medications. Medications at Discharge Home Medications dicyclomine 10 mg capsule 10 mg PO BID 12/27/24 enzalutamide 80 mg tablet (Xtandi) 160 mg PO DAILY 12/27/24 lorazepam 1 mg tablet 1 mg PO BID PRN anxiety 12/27/24 warfarin 5 mg tablet 5 mg PO DAILY 12/27/24 Held on 01/02/25. Instructions: Resume on 01/16/25. ciprofloxacin HCl 500 mg tablet (Cipro) 500 mg PO BID #10 tabs 01/02/25
[2025-01-03 11:45] VITALS: BP 116/61; PULSE 68; RESP 16; TEMP 36.6; O2SAT 97
== END 2025-01-03 12:45 | disposition home or self-care (01) ==
LOC: SDC 09:40 → MS3 09:40
PROVIDERS: Admitting Provider Urology; PCP Student in an Organized Health Care Education/Training Program; Referring Provider Urology; Visit Provider Urology
PROC: 0VT08ZZ Resection of Prostate, Via Natural or Artificial Opening Endoscopic (ICD-10-PCS; CPT 52601; principal; 2025-01-02 08:20)
DX: C61 Malignant neoplasm of prostate (principal); Z79.899 Other long term (current) drug therapy; Z79.01 Long term (current) use of anticoagulants; F41.9 Anxiety disorder, unspecified; N40.1 Benign prostatic hyperplasia with lower urinary tract symptoms; R35.0 Frequency of micturition; R39.11 Hesitancy of micturition; R35.1 Nocturia; R33.8 Other retention of urine; F32.A Depression, unspecified; N13.8 Other obstructive and reflux uropathy
CPT/HCPCS: 52601; 36416; 85610; 88305; 93005; 96365; 96366; 99221; G0378; J0744; J2405